=== PATIENT | male | born 1935 | race African-American/Black ===

== ENCOUNTER 2017-06-02 16:13 | Inpatient (IN) | payer MEDICARE, BC ==
[2017-05-31] MEDS: DOCUSATE SODIUM 50 MG/SENNA 8.6 MG TAB PO SCH (20:55)
[~2017-06-02 16:13] MED LIST: CARD2TAB PO; LORA1TAB12 PO; LOVA20TA PO; OMEP20TA93 PO; VERA1TAB17 PO
[2017-06-02 16:20] VITALS: BP 217/115; PULSE 102; RESP 20; TEMP 98.1; O2SAT 99
[2017-06-02] MEDS ORDERED: HYDR12.57 PO (16:40)
[2017-06-02] MEDS ORDERED: KLOR10TA PO (16:40)
[2017-06-02] MEDS ORDERED: cloNIDine HCL 0.1 MG TAB PO ONE ×2 (17:00→21:30)
--- NOTE | 2017-06-02 17:07 | RADRPT ---
EXAM DATE/TIME: 06/02/2017 16:57 [facility] COMPARISON: No previous studies available for comparison. INDICATIONS : Palpitations. MEDICAL HISTORY : Unobtainable. SURGICAL HISTORY : Unobtainable. ENCOUNTER: Initial ACUITY: 1 day PAIN SCORE: Non-responsive. LOCATION: Bilateral chest FINDINGS: A single view of the chest demonstrates the lungs to be symmetrically aerated without evidence of mas s, infiltrate or effusion. The cardiomediastinal contours are unremarkable. Osseous structures are intact. CONCLUSION: No acute disease. Jonathan Rosas MD on June 02, 2017 at 17:05 Board Certified Radiologist. This report was verified electronically.
[2017-06-02 17:08] VITALS: PULSE 100; RESP 18; O2SAT 98
[2017-06-02 17:20] LABS: AUTOMATED NEUTROPHIL # 4.7 TH/MM3 (1.8-7.7); BASOPHIL % 0.5 % (0.0-2.0); EOSINOPHIL % 0.6 % (0.0-4.0); HEMATOCRIT 40.8 % (39.0-51.0); HEMOGLOBIN 13.3 GM/DL (13.0-17.0); LYMPH % 20.7 % (9.0-44.0); LYMPHOCYTE # 1.4 TH/MM3 (1.0-4.8); MEAN CELL VOLUME 82.8 FL (80.0-100.0); MEAN CORPUSCULAR HGB CONC 32.6 % (32.0-36.0); MEAN PLATELET VOLUME 7.8 FL (7.0-11.0); MONO % 9.9 % (0.0-8.0); MONOCYTE # 0.7 TH/MM3 (0-0.9); NEUT % 68.3 % (16.0-70.0); PLATELET COUNT 229 TH/MM3 (150-450); RED BLOOD COUNT 4.93 MIL/MM3 (4.50-5.90); RED CELL DISTRIBUTION WIDTH 14.8 % (11.6-17.2); WHITE BLOOD COUNT 6.9 TH/MM3 (4.0-11.0)
[2017-06-02 17:50] LABS: INTERNATIONAL NORMALIZED RATIO 1.1 RATIO; PROTHROMBIN TIME - PATIENT 10.8 SEC (9.8-11.6)
--- NOTE | 2017-06-02 17:52 | PD ---
HPI Chief Complaint: Altered Mental Status Time Seen by Provider: 16:26 Travel History International Travel<30 days: No Contact w/Intl Traveler<30days: No Traveled to known affect area: No History of Present Illness HPI 81-year-old male that presents to the ED for evaluation of altered mental status. Per report I was given by the son and the daughter were present in the bedside patient has been having episodes of confusion as well as possibly delirium per her son for the past 2 weeks. Apparently the symptoms started on . Before Sunday son got in contact with the father about a month ago and patient was normal. Per son since symptoms of confusion started. Per Sunday appear to be very subtle and most of the time the end of being him repeating himself multiple times. Patient himself is completely oblivious to the symptoms and appears to be upset that he was brought here for evaluation by his kids. Per patient he is for the most part independent and lives with his . Per patient his is having issues. Per patient he has a history of high blood pressure and no history of CVA or mental illness. He does take lorazepam for anxiety chronically and son was concerned that maybe this was with causing some of this confusion. Per son he actually brought his father to his PCP for many years and fortunately patient had good day during the evaluation by the doctor and the doctor did not find anything of concern. Son brings the patient back here because for the past 48 hours patient has continued to be more confused and appears to be also getting upset that his kids are getting concerned about him. Patient himself denies any medical issues or any problems. He has no allergies to medication. No other medical issues. Per daughter patient was also diagnosed with prostate cancer and follows up with a doctor for this but she is unsure as to whether or doing for it. PFSH Past Medical History Cancer: No Cardiovascular Problems: No High Cholesterol: Yes Diabetes: No Endocrine: No Gastrointestinal Disorders: Yes (GERD) Genitourinary: No Hepatitis: No Hiatal Hernia: No Hypertension: Yes Immune Disorder: No Musculoskeletal: Yes (ARTHRITIS) Neurologic: No Psychiatric: Yes (ANXIETY) Reproductive: No Respiratory: No Thyroid Disease: No Past Surgical History AICD: No Joint Replacement: No Pacemaker: No Other Surgery: Yes Social History Alcohol Use: Yes (occ) Tobacco Use: No Substance Use: No Allergies-Medications (Allergen,Severity, Reaction): Coded Allergies: No Known Allergies (Unverified Allergy, Unknown, 06/02/17) Reported Meds & Prescriptions Reported Meds & Active Scripts Active Reported Klor-Con 10 (Potassium Chloride) 10 Meq Tab 10 Meq PO DAILY Hydrochlorothiazide 12.5 Mg Cap 5 Mg PO DAILY Omeprazole 20 Mg Tab 20 Mg PO DAILY Lovastatin 20 Mg Tab 20 Mg PO DAILY Lorazepam 1 Mg Tab 1 Mg PO DAILY PRN Review of Systems Except as stated in HPI: all other systems reviewed are Neg Physical Exam Narrative GENERAL: SKIN: Warm and dry. HEAD: Atraumatic. Normocephalic. EYES: Pupils equal and round. No scleral icterus. No injection or drainage. ENT: No nasal bleeding or discharge. Mucous membranes pink and moist. Tongue is midline. no uvula deviation. NECK: Trachea midline. No JVD. CARDIOVASCULAR: Regular rate and rhythm. No murmurs, S3, S4. RESPIRATORY: No accessory muscle use. Clear to auscultation. Breath sounds equal bilaterally. GASTROINTESTINAL: Abdomen soft, non-tender, nondistended. Hepatic and splenic margins not palpable. MUSCULOSKELETAL: Extremities without clubbing, cyanosis, or edema. No obvious deformities. Full range of motion of the upper and lower extremities bilaterally. 2+ pulses bilaterally. NEUROLOGICAL: Awake and alert. No obvious cranial nerve deficits. Motor grossly within normal limits. Five out of 5 muscle strength in the arms and legs. Normal speech. PSYCHIATRIC: Appropriate mood and affect; insight and judgment minimal but present Data Data Last Documented VS Vital Signs Date Time Temp Pulse Resp B/P (MAP) Pulse Ox O2 Delivery O2 Flow Rate FiO2 06/02/17 18:44 87 18 210/106 (140) 100 Room Air 06/02/17 16:20 98.1 Orders Orders Electrocardiogram (06/02/17 16:46) Complete Blood Count With Diff (06/02/17 16:46) Comprehensive Metabolic Panel (06/02/17 16:46) Ckmb (Isoenzyme) Profile (06/02/17 16:46) Troponin I (06/02/17 16:46) Prothrombin Time / Inr (Pt) (06/02/17 16:46) Act Partial Throm Time (Ptt) (06/02/17 16:46) Urinalysis - C+S If Indicated (06/02/17 16:46) Magnesium (Mg) (06/02/17 16:46) Thyroid Stimulating Hormone (06/02/17 16:46) Chest, Single Ap (06/02/17 16:46) Ct Brain W/O Iv Contrast(Rout) (06/02/17 16:46) Iv Access Insert/Monitor (06/02/17 16:46) Ecg Monitoring (06/02/17 16:46) Oximetry (06/02/17 16:46) Clonidine (Catapres) (06/02/17 17:00) CKMB (06/02/17 17:06) CKMB% (06/02/17 17:06) Lorazepam (Ativan) (06/02/17 18:30) Hydralazine Inj (Apresoline Inj) (06/02/17 18:30) Lorazepam Inj (Ativan Inj) (06/02/17 19:15) Place In Observation (06/02/17 ) Vital Signs (Adult) Q4H (06/02/17 19:10) Neuro Checks Q4H (06/02/17 19:10) Activity Oob With Assistance (06/02/17 19:10) Intake + Output STEFANIE.QSHIFT (06/02/17 19:10) Diet Regular Basic (06/03/17 Breakfast) Sodium Chlor 0.9% 1000 Ml Inj (Ns 1000 M (06/02/17 19:10) Sodium Chloride 0.9% Flush (Ns Flush) (06/02/17 19:15) Sodium Chloride 0.9% Flush (Ns Flush) (06/02/17 21:00) Ondansetron Inj (Zofran Inj) (06/02/17 19:15) Comprehensive Metabolic Panel (06/03/17 06:00) Complete Blood Count With Diff (06/03/17 06:00) Troponin I (06/03/17 00:00) Troponin I (06/03/17 06:00) Case Management Consult (06/02/17 19:10) Scd Bilateral/Knee High STEFANIE.BID (06/02/17 19:10) Sudhir Bilateral/Knee High STEFANIE.QSHIFT (06/02/17 19:12) Acetaminophen (Tylenol) (06/02/17 19:15) Acetamin-Hydrocod 325-5 Mg (Riley 5-325 (06/02/17 19:15) Acetamin-Hydrocod 325-10 Mg (Riley 10-32 (06/02/17 19:15) Docusate Sodium-Senna (Indu-Colace) (06/02/17 21:00) Magnesium Hydroxide Liq (Milk Of Magnesi (06/02/17 19:15) Sennosides (Senokot) (06/02/17 19:15) Bisacodyl Supp (Dulcolax Supp) (06/02/17 19:15) Lactulose Liq (Lactulose Liq) (06/02/17 19:15) Nifedipine Sr (Procardia Xl) (06/02/17 19:15) Nifedipine Sr (Procardia Xl) (06/03/17 09:00) Metoprolol Tartrate (Lopressor) (06/02/17 21:00) Pravastatin (Pravachol) (06/03/17 09:00) Admit Order (Ed Use Only) (06/02/17 19:31) Labs Laboratory Tests Test 06/02/17 17:06 06/02/17 17:17 White Blood Count 6.9 TH/MM3 Red Blood Count 4.93 MIL/MM3 Hemoglobin 13.3 GM/DL Hematocrit 40.8 % Mean Corpuscular Volume 82.8 FL Mean Corpuscular Hemoglobin 27.0 PG Mean Corpuscular Hemoglobin Concent 32.6 % Red Cell Distribution Width 14.8 % Platelet Count 229 TH/MM3 Mean Platelet Volume 7.8 FL Neutrophils (%) (Auto) 68.3 % Lymphocytes (%) (Auto) 20.7 % Monocytes (%) (Auto) 9.9 % Eosinophils (%) (Auto) 0.6 % Basophils (%) (Auto) 0.5 % Neutrophils # (Auto) 4.7 TH/MM3 Lymphocytes # (Auto) 1.4 TH/MM3 Monocytes # (Auto) 0.7 TH/MM3 Eosinophils # (Auto) 0.0 TH/MM3 Basophils # (Auto) 0.0 TH/MM3 CBC Comment DIFF FINAL Differential Comment Prothrombin Time 10.8 SEC Prothromb Time International Ratio 1.1 RATIO Activated Partial Thromboplast Time 28.5 SEC Blood Urea Nitrogen 9 MG/DL Creatinine 1.46 MG/DL Random Glucose 109 MG/DL Total Protein 8.4 GM/DL Albumin 3.5 GM/DL Calcium Level 9.8 MG/DL Magnesium Level 1.6 MG/DL Alkaline Phosphatase 85 U/L Aspartate Amino Transf (AST/SGOT) 24 U/L Alanine Aminotransferase (ALT/SGPT) 20 U/L Total Bilirubin 0.5 MG/DL Sodium Level 136 MEQ/L Potassium Level 3.3 MEQ/L Chloride Level 103 MEQ/L Carbon Dioxide Level 24.8 MEQ/L Anion Gap 8 MEQ/L Estimat Glomerular Filtration Rate 56 ML/MIN Total Creatine Kinase 172 U/L Creatine Kinase MB 2.6 NG/ML Troponin I 0.02 NG/ML Thyroid Stimulating Hormone 3rd Gen 0.557 uIU/ML Urine Color LIGHT-YELLOW Urine Turbidity CLEAR Urine pH 6.0 Urine Specific [place] 1.004 Urine Protein NEG mg/dL Urine Glucose (UA) NEG mg/dL Urine Ketones NEG mg/dL Urine Occult Blood NEG Urine Nitrite NEG Urine Bilirubin NEG Urine Urobilinogen LESS THAN 2.0 MG/DL Urine Leukocyte Esterase NEG Urine RBC LESS THAN 1 /hpf Urine WBC 3 /hpf Urine Squamous Epithelial Cells <1 /hpf Microscopic Urinalysis Comment CULT NOT INDICATED MDM Medical Decision Making Medical Screen Exam Complete: Yes Emergency Medical Condition: Yes Medical Record Reviewed: Yes Interpretation(s) CBC & BMP Diagram 06/02/17 17:06 Total Protein 8.4 H, Albumin 3.5, Calcium Level 9.8, Magnesium Level 1.6, Alkaline Phosphatase 85, Aspartate Amino Transf (AST/SGOT) 24, Alanine Aminotransferase (ALT/SGPT) 20, Total Bilirubin 0.[address] 06/02/17 1646 Signed Impressions: Service Date/Time: Friday, June 02, 2017 17:54 - CONCLUSION: 1. No acute intracranial abnormality. 2. Chronic white matter changes. 3. Right sphenoid sinusitis. Jonathan De La Fuente MD Chest X-Ray 06/02/17 1646 Signed Impressions: Service Date/Time: Friday, June 02, 2017 16:57 - CONCLUSION: No acute disease. Jonathan Rosas MD UA negative EKG shows sinus rhythm with no sign of acute ischemia or arrythmia read by me and attending. troponin and CKMB negative Differential Diagnosis Altered mental status versus dementia versus delirium versus infection versus CVA versus metastasis of the cancer Narrative Course 81-year-old male presents to the ED for evaluation of altered mental status. Patient was properly examined and was found to have signs and symptoms of altered mental status at this time. Labs and imaging order at this time. Patient does appear to be very hypertensive on exam. Patient was given clonidine here. Labs and imaging showed no sign of acute disease other than hypertension. Patient was given lorazepam as this could be a reaction to patient not taking any lorazepam today. His blood pressure still high. He was given hydralazine which did bring down his blood pressure below the 200s. Patient still somewhat altered. I discussed the recommendation for observation for further eval and the family of the patient wanted him to be admitted. Patient himself was not excited but was agreeable. Patient was admitted to Dr. Eduardo who agrees to admission. Diagnosis Primary Impression: Altered mental status Qualified Codes: R41.82 - Altered mental status, unspecified Additional Impression: Hypertension Qualified Codes: I10 - Essential (primary) hypertension Admitting Information Admitting Physician Requests: Observation Geronimo Temple Jun 02, 2017 17:52
[2017-06-02 18:02] LABS: ALBUMIN 3.5 GM/DL (3.4-5.0); AST (GOT) 24 U/L (15-37); BICARBONATE 24.8 MEQ/L (21.0-32.0); BLOOD UREA NITROGEN 9 MG/DL (7-18); CALCIUM 9.8 MG/DL (8.5-10.1); CHLORIDE 103 MEQ/L (98-107); CREATININE 1.46 MG/DL (0.60-1.30); GLOMERULAR FILTRATION RATE 56 ML/MIN (>89); GLUCOSE,RANDOM 109 MG/DL (74-106); MAGNESIUM 1.6 MG/DL (1.5-2.5); SODIUM (NA) 136 MEQ/L (136-145)
[2017-06-02 18:03] LABS: ALT (GPT) 20 U/L (12-78)
[2017-06-02 18:06] LABS: BILIRUBIN, URINE NEG (NEG); BLOOD, URINE NEG (NEG); GLUCOSE,URINE NEG (NEG); KETONE, URINE NEG (NEG); NITRITE,URINE NEG (NEG); SQUAMOUS EPITHELIAL CELL URINE <1 /hpf (0-5); URINE COLOR LIGHT-YELLOW (YELLW/STRAW); URINE LEUKOCYTE ESTERASE NEG (NEG)
--- NOTE | 2017-06-02 18:08 | RADRPT ---
EXAM DATE/TIME: 06/02/2017 17:54 [facility] COMPARISON: No previous studies available for comparison. INDICATIONS : Altered mental status. RADIATION DOSE: 56.35 CTDIvol (mGy) MEDICAL HISTORY : Hypertension. Gastroesophageal reflux disease. Renal calculi.Diabetes SURGICAL HISTORY : None. ENCOUNTER: Initial ACUITY: 1 day PAIN SCALE: Non-responsive LOCATION: cranial TECHNIQUE: Multiple contiguous axial images were obtained of the head. Using automated exposure control and adj ustment of the mA and/or kV according to patient size, radiation dose was kept as low as reasonably a chievable to obtain optimal diagnostic quality images. DICOM format image data is available electro nically for review and comparison. FINDINGS: CEREBRUM: The ventricles are normal for age. No evidence of midline shift, mass lesion, hemorrhage or acute in farction. No extra-axial fluid collections are seen. There is chronic-appearing low attenuation in t he periventricular white matter. POSTERIOR FOSSA: The cerebellum and brainstem are intact. The 4th ventricle is midline. The cerebellopontine angle i s unremarkable. EXTRACRANIAL: There is mucoperiosteal thickening and a mucous retention cyst in the right sphenoid air cell. SKULL: The calvaria is intact. No evidence of skull fracture. CONCLUSION: 1. No acute intracranial abnormality. 2. Chronic white matter changes. 3. Right sphenoid sinusitis. Jonathan De La Fuente MD on June 02, 2017 at 18:05 Board Certified Radiologist. This report was verified electronically.
[2017-06-02 18:13] LABS: ALKALINE PHOSPHATASE 85 U/L (45-117); TOTAL BILIRUBIN ADULT 0.5 MG/DL (0.2-1.0); TOTAL PROTEIN 8.4 GM/DL (6.4-8.2); TROPONIN I 0.02 NG/ML (0.02-0.05)
[2017-06-02] MEDS ORDERED: LORazepam 1 MG TAB PO ONE (18:30)
[2017-06-02] MEDS ORDERED: hydrALAZINE HCL 20 MG/ML VIAL IV PUSH ONE (18:30)
[2017-06-02 18:44] VITALS: BP 210/106; PULSE 87; RESP 18; O2SAT 100
[2017-06-02] MEDS ORDERED: SODIUM CHLOR 0.9% 1000 ML INJ 1,000 ML IV SCH (19:10)
--- NOTE | 2017-06-02 19:13 | HHI.HP ---
[facility] Carter Fountain DO Admission Diagnosis Diagnoses: (1) Encephalopathy Diagnosis: Principal (2) HTN (hypertension) Diagnosis: Principal (3) Renal insufficiency Diagnosis: Principal (4) Urinary retention Diagnosis: Principal Travel History International Travel<30 Days: No Contact w/Intl Traveler <30 Da: No Traveled to Known Affected Are: No History of Present Illness This is an 81-year-old male with a PMH of HTN, Hyperlipidemia, Anxiety and Prostate CA who was brought to the ER by family secondary to altered mental status. Per son, patient has been having worsening agitation, anxiety and confusion for the last 2 weeks. Son states pt is chronically on Lorazepam, however he believes his medication might be contributing to these symptoms. No reported h/o similar symptoms prior to 2wks ago. On arrival, BP 217/115, HR 102 , O2 sat 99% on RA, Afebrile. CBC unremarkable. Creatinine 1.46, previously 1.43 on 12/30/2013. Troponin negative. INR 1.1. UA negative for CXR with no acute findings. CT Head with no acute intracranial abnormality. On exam, pt highly anxious, moving around, c/o suprapubic pain. Bladder scan w/ >400ml urine. Review of Systems Except as stated in HPI: all other systems reviewed are Neg ROS: 14 point review of systems otherwise negative. Past Family Social History Past Medical History PMH: HTN, Hyperlipidemia, Anxiety and Prostate CA Past Surgical History PAST SURGICAL HISTORY: None Allergies: Coded Allergies: No Known Allergies (Unverified Allergy, Unknown, 06/02/17) Family History PAST FAMILY HISTORY: Reviewed. No h/o DM or CAD Social History PAST SOCIAL HISTORY: Occasional alcohol. Negative for tobacco or drugs. Physical Exam Vital Signs Vital Signs Date Time Temp Pulse Resp B/P (MAP) Pulse Ox O2 Delivery O2 Flow Rate FiO2 06/02/17 18:44 87 18 210/106 (140) 100 Room Air 06/02/17 17:08 100 18 98 Room Air 06/02/17 16:34 104 18 99 Room Air 06/02/17 16:20 98.1 102 20 217/115 (282) 99 Physical Exam PE: GENERAL: Pleasant elderly black male in no acute distress, but anxious, tangential speech. HEENT: PERRLA, EOMI. No scleral icterus or conjunctival pallor. No lid lag or facial droop. CARDIOVASCULAR: Regular rate and rhythm. No obvious murmurs to auscultation. No chest tenderness to palpation. RESPIRATORY: No obvious rhonchi or wheezing. Clear to auscultation. Breath sounds equal bilaterally. GASTROINTESTINAL: Abdomen soft, suprapubic tenderness to palpation, nondistended. BS normal. MUSCULOSKELETAL: Extremities without clubbing, cyanosis, or edema. No obvious deformities. NEUROLOGICAL: Awake, alert and oriented to person, place, +confused at times. No focal neurologic deficits. Moving both upper and lower extremities spontaneously. Laboratory Laboratory Tests Test 06/02/17 17:06 06/02/17 17:17 White Blood Count 6.9 Red Blood Count 4.93 Hemoglobin 13.3 Hematocrit 40.8 Mean Corpuscular Volume 82.8 Mean Corpuscular Hemoglobin 27.0 Mean Corpuscular Hemoglobin Concent 32.6 Red Cell Distribution Width 14.8 Platelet Count 229 Mean Platelet Volume 7.8 Neutrophils (%) (Auto) 68.3 Lymphocytes (%) (Auto) 20.7 Monocytes (%) (Auto) 9.9 Eosinophils (%) (Auto) 0.6 Basophils (%) (Auto) 0.5 Neutrophils # (Auto) 4.7 Lymphocytes # (Auto) 1.4 Monocytes # (Auto) 0.7 Eosinophils # (Auto) 0.0 Basophils # (Auto) 0.0 CBC Comment DIFF FINAL Differential Comment Prothrombin Time 10.8 Prothromb Time International Ratio 1.1 Activated Partial Thromboplast Time 28.5 Blood Urea Nitrogen 9 Creatinine 1.46 Random Glucose 109 Total Protein 8.4 Albumin 3.5 Calcium Level 9.8 Magnesium Level 1.6 Alkaline Phosphatase 85 Aspartate Amino Transf (AST/SGOT) 24 Alanine Aminotransferase (ALT/SGPT) 20 Total Bilirubin 0.5 Sodium Level 136 Potassium Level 3.3 Chloride Level 103 Carbon Dioxide Level 24.8 Anion Gap 8 Estimat Glomerular Filtration Rate 56 Total Creatine Kinase 172 Creatine Kinase MB 2.6 Troponin I 0.02 Thyroid Stimulating Hormone 3rd Gen 0.557 Urine Color LIGHT-YELLOW Urine Turbidity CLEAR Urine pH 6.0 Urine Specific [place] 1.004 Urine Protein NEG Urine Glucose (UA) NEG Urine Ketones NEG Urine Occult Blood NEG Urine Nitrite NEG Urine Bilirubin NEG Urine Urobilinogen LESS THAN 2.0 Urine Leukocyte Esterase NEG Urine RBC LESS THAN 1 Urine WBC 3 Urine Squamous Epithelial Cells <1 Microscopic Urinalysis Comment CULT NOT INDICATED Result Diagram: 06/02/17170506/02/17 170 Caprini VTE Risk Assessment Caprini VTE Risk Assessment: No/Low Risk (score <= 1) Caprini Risk Assessment Model Point Value = 1 Point Value = 2 Point Value = 3 Point Value = 5 Age 41-60 Minor surgery BMI > 25 kg/m2 Swollen legs Varicose veins or History of unexplained or recurrent spontaneous Oral contraceptives or hormone replacement Sepsis (< 1 month) Serious lung disease, including pneumonia (< 1 month) Abnormal pulmonary function Acute myocardial infarction Congestive heart failure (< 1 month) History of inflammatory bowel disease Medical patient at bed rest Age 61-74 Arthroscopic surgery Major open surgery (> 45 min) Laparoscopic surgery (> 45 min) Malignancy Confined to bed (> 72 hours) Immobilizing plaster cast Central venous access Age >= 75 History of VTE Family history of VTE Factor V Leiden Prothrombin [id number] Lupus anticoagulant Anticardiolipin antibodies Elevated serum homocysteine Heparin-induced thrombocytopenia Other congenital or acquired thrombophilia Stroke (< 1 month) Elective arthroplasty Hip, pelvis, or leg fracture Acute spinal cord injury (< 1 month) Prophylaxis Regimen Total Risk Factor Score Risk Level Prophylaxis Regimen 0-1 Low Early ambulation 2 Moderate Order ONE of the following: *Sequential Compression Device (SCD) *Heparin 5000 units SQ BID 3-4 Higher Order ONE of the following medications: *Heparin 5000 units SQ TID *Enoxaparin/Lovenox 40 mg SQ daily (WT < 150 kg, CrCl > 30 mL/min) *Enoxaparin/Lovenox 30 mg SQ daily (WT < 150 kg, CrCl > 10-29 mL/min) *Enoxaparin/Lovenox 30 mg SQ BID (WT < 150 kg, CrCl > 30 mL/min) AND/OR *Sequential Compression Device (SCD) 5 or more Highest Order ONE of the following medications: *Heparin 5000 units SQ TID (Preferred with Epidurals) *Enoxaparin/Lovenox 40 mg SQ daily (WT < 150 kg, CrCl > 30 mL/min) *Enoxaparin/Lovenox 30 mg SQ daily (WT < 150 kg, CrCl > 10-29 mL/min) *Enoxaparin/Lovenox 30 mg SQ BID (WT < 150 kg, CrCl > 30 mL/min) AND *Sequential Compression Device (SCD) Assessment and Plan Problem List: (1) Encephalopathy ICD Code: G93.40 - Encephalopathy, unspecified (2) HTN (hypertension) ICD Code: I10 - Essential (primary) hypertension (3) Renal insufficiency ICD Code: N28.9 - Disorder of kidney and ureter, unspecified (4) Urinary retention ICD Code: R33.9 - Retention of urine Status: Acute Assessment and Plan A/P: 1. Encephalopathy: acute onset AMS/confusion 2wks ago w/ progression per family. Possibly hypertensive encephalopathy due to uncontrolled HTN, however CT Head w/ no acute findings, images reviewed by me. No headache, no nausea/ vomiting. No focal deficits. U/a negative for UTI. Possibly progressive Dementia, will consult Neurology for further evaluation/recommendations. Neuro checks. 2. HTN: Uncontrolled. BP 200's on arrival, s/p Hydralazine in ER w/ minimal improvement. Start Nifedipine/Metoprolol, monitor BP. 3. Urinary Retention: c/o suprapubic pain, bladder scan w/ >400ml, likely secondary to BPH/Prostate CA, will start Flomax, Straight Cath prn. 4. Renal Insufficiency: Creatinine 1.46, previously 1.43 on 12/30/13, U/a negative for UTI, monitor I/O, hold HCTZ, repeat labs in am. 5. DVT Prophylaxis: SCD/Teds 6. Social work for d/c planning as needed. 7. Case discussed w/ ER physician at length, labs/records/imaging reviewed by me Neris Eduardo MD Jun 02, 2017 19:13
[2017-06-02] MEDS ORDERED: SENNOSIDES 8.6 MG TAB PO PRN (19:15)
[2017-06-02] MEDS ORDERED: ONDANSETRON HCL 4 MG/2 ML VIAL IVP PRN (19:15)
[2017-06-02] MEDS ORDERED: NIFEdipine 30 MG SUSTAINED RELEASE TAB PO ONE (19:15)
[2017-06-02] MEDS ORDERED: LACTULOSE SYRUP 20 GM/30 ML CUP PO PRN (19:15)
[2017-06-02] MEDS ORDERED: MAGNESIUM HYDROXIDE SUSP 30 ML CUP PO PRN (19:15)
[2017-06-02] MEDS ORDERED: ACETAMINOPHEN 325 MG TAB PO PRN (19:15)
[2017-06-02] MEDS ORDERED: ACETAMINOPHEN/HYDROcodone 325 MG/5 MG TAB PO PRN (19:15)
[2017-06-02] MEDS ORDERED: BISACODYL 10 MG SUPP RECTAL PRN (19:15)
[2017-06-02] MEDS ORDERED: SODIUM CHLORIDE 0.9% FLUSH 10 ML FLUSH IV FLUSH PRN (19:15)
[2017-06-02 19:43] VITALS: BP 186/96; PULSE 90; RESP 14; O2SAT 100
[2017-06-02] MEDS: DOCUSATE SODIUM 50 MG/SENNA 8.6 MG TAB PO SCH (21:00)
[2017-06-02 21:02] VITALS: BP 208/98; PULSE 108; RESP 19; TEMP 98.3; O2SAT 98
[2017-06-02] MEDS: METOPROLOL TARTRATE 25 MG TAB PO SCH (21:02)
[2017-06-02] MEDS: SODIUM CHLORIDE 0.9% FLUSH 10 ML FLUSH IV FLUSH SCH (21:06)
[2017-06-02] MEDS: TEMAZEPAM 7.5 MG CAP PO PRN (22:23)
[2017-06-02] MEDS ORDERED: TAMSULOSIN HCL 0.4 MG CAP PO ONE (22:30)
[2017-06-02 23:08] VITALS: BP 129/64; PULSE 64
[2017-06-03 00:55] VITALS: BP 110/57
[2017-06-03] MEDS: ACETAMINOPHEN/HYDROcodone 325 MG/10 MG TAB PO PRN ×2 (02:23→21:09)
[2017-06-03 06:54] LABS: AUTOMATED NEUTROPHIL # 5.8 TH/MM3 (1.8-7.7); BASOPHIL % 0.5 % (0.0-2.0); EOSINOPHIL # 0.1 TH/MM3 (0-0.4); EOSINOPHIL % 1.1 % (0.0-4.0); HEMATOCRIT 37.9 % (39.0-51.0); HEMOGLOBIN 12.6 GM/DL (13.0-17.0); LYMPH % 15.1 % (9.0-44.0); LYMPHOCYTE # 1.2 TH/MM3 (1.0-4.8); MEAN CORPUSCULAR HEMOGLOBIN 27.5 PG (27.0-34.0); MEAN CORPUSCULAR HGB CONC 33.1 % (32.0-36.0); MEAN PLATELET VOLUME 8.3 FL (7.0-11.0); MONO % 10.2 % (0.0-8.0); MONOCYTE # 0.8 TH/MM3 (0-0.9); NEUT % 73.1 % (16.0-70.0); PLATELET COUNT 204 TH/MM3 (150-450); RED BLOOD COUNT 4.57 MIL/MM3 (4.50-5.90); RED CELL DISTRIBUTION WIDTH 14.2 % (11.6-17.2)
[2017-06-03 07:35] LABS: ALBUMIN 3.1 GM/DL (3.4-5.0); ALT (GPT) 19 U/L (12-78); AST (GOT) 20 U/L (15-37); BICARBONATE 24.1 MEQ/L (21.0-32.0); BLOOD UREA NITROGEN 12 MG/DL (7-18); CALCIUM 9.2 MG/DL (8.5-10.1); CHLORIDE 105 MEQ/L (98-107); CREATININE 1.44 MG/DL (0.60-1.30); GLOMERULAR FILTRATION RATE 57 ML/MIN (>89); GLUCOSE,RANDOM 100 MG/DL (74-106); SODIUM (NA) 139 MEQ/L (136-145)
[2017-06-03 07:39] LABS: ALKALINE PHOSPHATASE 79 U/L (45-117); TOTAL BILIRUBIN ADULT 0.5 MG/DL (0.2-1.0); TOTAL PROTEIN 7.4 GM/DL (6.4-8.2); TROPONIN I 0.04 NG/ML (0.02-0.05)
[2017-06-03] MEDS: PRAVASTATIN SOD 20 MG TAB PO SCH (08:34)
[2017-06-03] MEDS: NIFEdipine 30 MG SUSTAINED RELEASE TAB PO SCH (08:35)
[2017-06-03] MEDS: DOCUSATE SODIUM 50 MG/SENNA 8.6 MG TAB PO SCH ×2 (08:35→21:08)
[2017-06-03] MEDS: METOPROLOL TARTRATE 25 MG TAB PO SCH ×2 (08:35→21:08)
[2017-06-03] MEDS: TAMSULOSIN HCL 0.4 MG CAP PO SCH (08:35)
[2017-06-03] MEDS: SODIUM CHLORIDE 0.9% FLUSH 10 ML FLUSH IV FLUSH SCH ×2 (08:36→21:00)
[2017-06-03 08:40] VITALS: BP 138/76; PULSE 65; RESP 20; TEMP 97.8; O2SAT 100
--- NOTE | 2017-06-03 11:24 | PD.CONS ---
History of Present Illness Service Neurology Consult Requested By med Reason for Consult confusion Primary Care Physician Carter Fountain, DO History of Present Illness 81-year-old male with a PMH of HTN, Hyperlipidemia, Anxiety and Prostate CA who was brought to the ER by family secondary to altered mental status. Son at bedside and states his father has not been right since . episodes of confusion, not making sense. 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 lives with his who has mild dementia. he has not been dx'd with dementia. son feels he is better this am. pt denies any hopkins, cp, focal weakness. feels well. recollects bringing his to our office. On arrival, BP 217/115. CT Head with no acute intracranial abnormality. has been taking ativan 1mg 3-4x/day for anxiety. Review of Systems Except as stated in HPI: all other systems reviewed are Neg Past Family Social History Past Medical History PMH: HTN, Hyperlipidemia, Anxiety and Prostate CA Past Surgical History PAST SURGICAL HISTORY: None Allergies: Coded Allergies: No Known Allergies (Unverified Allergy, Unknown, 06/02/17) Family History No h/o DM or CAD Social History ; with mild dementia. Occasional alcohol. Negative for tobacco or drugs. Review of Systems All other ROS: ROS reviewed as documented in chart Past Family Social History Allergies: Coded Allergies: No Known Allergies (Unverified Allergy, Unknown, 06/02/17) Active Ordered Medications Current Medications Medications (Trade) Dose Ordered Sig/Frederic Route Start Time Stop Time Status Last Admin (Ativan Inj) 0.5 mg Q3H PRN IV PUSH 06/02/17 19:15 Sodium Chloride 1,000 ml @ 100 mls/hr Q10H IV 06/02/17 19:10 06/02/17 19:41 (NS Flush) 2 ml UNSCH PRN IV FLUSH 06/02/17 19:15 (NS Flush) 2 ml BID IV FLUSH 06/02/17 21:00 06/02/17 21:06 (Zofran Inj) 4 mg Q6H PRN IVP 06/02/17 19:15 (Tylenol) 650 mg Q6H PRN PO 06/02/17 19:15 ([place] 5-325 Mg) 1 tab Q4H PRN PO 06/02/17 19:15 ([place] 10-325 Mg) 1 tab Q4H PRN PO 06/02/17 19:15 06/03/17 02:23 (Indu-Colace) 1 tab BID PO 06/02/17 21:00 06/03/17 08:35 (Milk Of Magnesia Liq) 30 ml Q12H PRN PO 06/02/17 19:15 (Senokot) 17.2 mg Q12H PRN PO 06/02/17 19:15 (Dulcolax Supp) 10 mg DAILY PRN RECTAL 06/02/17 19:15 (Lactulose Liq) 30 ml DAILY PRN PO 06/02/17 19:15 (Procardia Xl) 30 mg DAILY PO 06/03/17 09:00 06/03/17 08:35 (Lopressor) 25 mg Q12HR PO 06/02/17 21:00 06/03/17 08:35 (Pravachol) 20 mg DAILY PO 06/03/17 09:00 06/03/17 08:34 (Restoril) 7.5 mg HS PRN PO 06/02/17 22:15 06/02/17 22:23 (Flomax) 0.4 mg DAILY PO 06/03/17 09:00 06/03/17 08:35 Exam I&O / VS Vital Signs Date Time Temp Pulse Resp B/P (MAP) Pulse Ox O2 Delivery O2 Flow Rate FiO2 06/03/17 08:40 97.8 65 20 138/76 (96) 100 06/03/17 00:55 110/57 (74) 06/02/17 23:08 64 129/64 (85) 06/02/17 21:02 98.3 108 19 208/98 (134) 98 06/02/17 20:29 06/02/17 19:43 90 14 186/96 (126) 100 Room Air 06/02/17 19:34 16 06/02/17 18:44 87 18 210/106 (140) 100 Room Air 06/02/17 17:08 100 18 98 Room Air 06/02/17 16:34 104 18 99 Room Air 06/02/17 16:20 98.1 102 20 217/115 (149) 99 General: Alert and Oriented, No acute distress Eye: EOMI Respiratory: Non-labored respirations Cardiology: Normal rate Neurologic: Alert, Oriented, Normal sensory, Normal motor, No focal defects, CN II-XII intact, Normal DTR's Psychiatric: Cooperative, Appropriate mood & affect Exam Comments ox 2, not to exact date, follows, pres Trump, recognizes son, pleasant, calm, eomi, ou 3-2mm, face sym, neck supple, conte to gravity Review/Management Diagnosis/Plan: (1) Encephalopathy ICD Codes: G93.40 - Encephalopathy, unspecified Status: Acute Plan: likely 2/2 severe HTN with probable underlying development of MCI/early dementia benzo's may be playing a role no fever, wbc in range recs bp control eeg check b12 mri brain limit benzo use d/c planning later today/am home health care checks for medication compliance d/w pt/son no driving will f/u in our office for further cognitive evaluation (2) Cognitive impairment ICD Codes: R41.89 - Other symptoms and signs involving cognitive functions and awareness Status: Chronic Plan: suspect developing MCI/early alz no driving (3) Anxiety ICD Codes: F41.9 - Anxiety disorder, unspecified Status: Chronic (4) HTN (hypertension) ICD Codes: I10 - Essential (primary) hypertension Status: Chronic Problem Qualifiers (1) HTN (hypertension): Qualified Codes: I10 - Essential (primary) hypertension Luiz Marquez MD Jun 03, 2017 11:24
--- NOTE | 2017-06-03 11:24 | HHI.PR ---
Subjective Remarks in no acute distress. denies pain. awake, alert and oriented. daughter at the bedside. Objective Vitals Vital Signs Date Time Temp Pulse Resp B/P (MAP) Pulse Ox O2 Delivery O2 Flow Rate FiO2 06/03/17 08:40 97.8 65 20 138/76 (96) 100 06/03/17 00:55 110/57 (74) 06/02/17 23:08 64 129/64 (85) 06/02/17 21:02 98.3 108 19 208/98 (134) 98 06/02/17 20:29 06/02/17 19:43 90 14 186/96 (126) 100 Room Air 06/02/17 19:34 16 06/02/17 18:44 87 18 210/106 (140) 100 Room Air 06/02/17 17:08 100 18 98 Room Air 06/02/17 16:34 104 18 99 Room Air 06/02/17 16:20 98.1 102 20 217/115 (149) 99 I/O 06/02/17 06/02/17 06/02/17 06/03/17 06/03/17 06/03/17 07:00 15:00 23:00 07:00 15:00 23:00 Output Total 550 ml Balance -550 ml Output Urine Total 550 ml Bladder Scan Volume Amount 443 ml Result Diagram: 06/03/17 0607 06/03/17 0607 Imaging Last Impressions Head CT [id number]/02/171645 Signed Impressions: Service Date/Time: Friday, June 02, 2017 17:54 - CONCLUSION: 1. No acute intracranial abnormality. 2. Chronic white matter changes. 3. Right sphenoid sinusitis. Jonathan De La Fuente MD Chest X-Ray 06/02/171645 Signed Impressions: Service Date/Time: Friday, June 02, 2017 16:57 - CONCLUSION: No acute disease. Jonathan Rosas MD Objective Remarks GENERAL: This is a well-nourished, well-developed patient, in no apparent distress. CARDIOVASCULAR: Regular rate and regular rhythm without murmurs, gallops, or rubs. RESPIRATORY: Clear to auscultation. Breath sounds equal bilaterally. No wheezes , rales, or rhonchi. GASTROINTESTINAL: Abdomen soft, non-tender, nondistended. Normal, active bowel sounds MUSCULOSKELETAL: Extremities without clubbing, cyanosis, or edema. NEURO: Alert & Oriented x4 to person, place, time, situation. Moves all ext x4 Medications and IVs Inpatient Medications Acetaminophen (Tylenol) 650 mg Q6H PRN PO FEVER/PAIN SCALE 1 TO 2; Start at 19:15 Acetaminophen/ Hydrocodone Bitart ([place] 5-325 Mg) 1 tab Q4H PRN PO PAIN SCALE 3 TO 5; Start 06/02/17 at 19:15 Acetaminophen/ Hydrocodone Bitart ([place] 10-325 Mg) 1 tab Q4H PRN PO PAIN SCALE 6 TO 10 Last administered on 06/03/17at 02:23; Start 06/02/17 at 19:15 Bisacodyl (Dulcolax Supp) 10 mg DAILY PRN RECTAL SEVERE CONSITIPATION; Start at 19:15 Clonidine (Catapres) 0.1 mg ONCE ONCE PO Last administered on 06/02/17at 21:39 ; Start 06/02/17 at 21:30; Stop 06/02/17 at 21:33; Status DC Hydralazine HCl (Apresoline Inj) 10 mg ONCE ONCE IV PUSH Last administered on 06/02/17at 18:41; Start 06/02/17 at 18:30; Stop 06/02/17 at 18:31; Status DC Lactulose (Lactulose Liq) 30 ml DAILY PRN PO SEVERE CONSITIPATION; Start at 19:15 Lorazepam (Ativan Inj) 0.5 mg Q3H PRN IV PUSH AGITATION/ANXIETY; Start at 19:15 Lorazepam (Ativan) 1 mg ONCE ONCE PO Last administered on 06/02/17at 18:40; Start 06/02/17 at 18:30; Stop 06/02/17 at 18:31; Status DC Magnesium Hydroxide (Milk Of Magnesia Liq) 30 ml Q12H PRN PO Mild constipation ; Start 06/02/17 at 19:15 Metoprolol Tartrate (Lopressor) 25 mg Q12HR PO Last administered on 06/03/17at 08:35; Start 06/02/17 at 21:00 Nifedipine (Procardia Xl) 30 mg DAILY PO Last administered on 06/03/17at 08:35; Start 06/03/17 at 09:00 Ondansetron HCl (Zofran Inj) 4 mg Q6H PRN IVP NAUSEA OR VOMITING; Start at 19:15 Pravastatin Sodium (Pravachol) 20 mg DAILY PO Last administered on 06/03/17at 08 :34; Start 06/03/17 at 09:00 Senna/Docusate Sodium (Indu-Colace) 1 tab BID PO Last administered on at 08:35; Start 06/02/17 at 21:00 Sennosides (Senokot) 17.2 mg Q12H PRN PO Moderate constipation; Start 06/02/17 at 19:15 Sodium Chloride (NS Flush) 2 ml BID IV FLUSH Last administered on 06/02/17at 21: 06; Start 06/02/17 at 21:00 Tamsulosin HCl (Flomax) 0.4 mg DAILY PO Last administered on 06/03/17at 08:35; Start 06/03/17 at 09:00 Temazepam (Restoril) 7.5 mg HS PRN PO SLEEP Last administered on 06/02/17at 22: 23; Start 06/02/17 at 22:15 A/P Problem List: (1) Encephalopathy ICD Code: G93.40 - Encephalopathy, unspecified Status: Acute (2) HTN (hypertension) ICD Code: I10 - Essential (primary) hypertension Status: Chronic (3) Renal insufficiency ICD Code: N28.9 - Disorder of kidney and ureter, unspecified (4) Urinary retention ICD Code: R33.9 - Retention of urine Status: Acute Assessment and Plan 1. Encephalopathy: Possibly progressive Dementia.neurology consulted. Neuro checks. 2. HTN: overall better controlled. continue Nifedipine/Metoprolol, monitor BP. 3. Urinary Retention: c/o suprapubic pain, bladder scan w/ >400ml, likely secondary to BPH/Prostate CA, will start Flomax, Straight Cath prn. 4. Renal Insufficiency: Creatinine 1.46, previously 1.43 on 12/30/13, U/a negative for UTI, monitor I/O, hold HCTZ, repeat labs in am. 5.hypokalemia; will replace. 6. DVT Prophylaxis: SCD/Teds Discharge Planning awaiting neurology evaluation. Problem Qualifiers (1) HTN (hypertension): Qualified Codes: I10 - Essential (primary) hypertension Tera Bruce MD Jun 03, 2017 11:24
[2017-06-03] MEDS ORDERED: POTASSIUM CHLORIDE 10 MEQ CONTROLLED RELEASE TAB PO ONE (11:30)
[2017-06-03 12:08] VITALS: BP 116/55; PULSE 70; RESP 20; TEMP 97.9; O2SAT 96
--- NOTE | 2017-06-03 14:24 | EKG ---
Date Performed: 06/02/2017 Time Performed: 17:21:07 PTAGE: 81 years EKG: Sinus rhythm MARKED LEFT AXIS DEVIATION VOLTAGE CRITERIA FOR LVH NONSPECIFIC T-WAVE ABNORMALITY ABNORMAL ECG Sinc e PREVIOUS TRACING , no significant change noted PREVIOUS TRACIN10/01/2015 10.14 DOCTOR: Sharda Lake Interpretating Date/Time 06/03/2017 14:22:40
[2017-06-03] MEDS: LORazepam 2 MG/ML VIAL IV PUSH PRN (15:45)
[2017-06-03 16:08] VITALS: BP 119/65; PULSE 62; RESP 18; TEMP 98.2; O2SAT 96
[2017-06-03] MEDS ORDERED: NIFE30TA8 PO (17:03)
[2017-06-03] MEDS ORDERED: METO25TA3 PO (17:03)
--- NOTE | 2017-06-03 19:14 | MG ---
cc: Luiz Marquez MD EEG RECORD NUMBER: [id number] A 6-8 Hz posterior rhythm, 20-50 microvolts. Anterior to posterior gradient. Attenuation background slowing with transition into drowsy state, followed by stage I sleep and vertex waves. Tiny sharp transients. Good EEG variability and reactivity. Reasonable driving with photic stimulation. EKG showing sinus rhythm. INTERPRETATION: Normal awake, sleep electroencephalogram. Clinical correlation. Luiz Marquez MD MG/SB , 07:00 PM , 07:12 PM MTDD
[2017-06-03 19:53] VITALS: BP 135/67; PULSE 58; RESP 16; TEMP 98.7; O2SAT 99
[2017-06-03] MEDS ORDERED: TAMS5CAP PO (20:33)
[2017-06-03] MEDS: TEMAZEPAM 7.5 MG CAP PO PRN (21:08)
[2017-06-03 23:49] VITALS: BP 127/57; PULSE 50; RESP 16; TEMP 98.2; O2SAT 98
[2017-06-04 03:51] VITALS: BP 126/58; PULSE 56; RESP 16; TEMP 98.3; O2SAT 99
[2017-06-04] MEDS: LORazepam 2 MG/ML VIAL IV PUSH PRN ×2 (06:36→15:41)
[2017-06-04 08:00] VITALS: BP 127/65; PULSE 60; RESP 16; TEMP 98.3; O2SAT 97
[2017-06-04] MEDS: DOCUSATE SODIUM 50 MG/SENNA 8.6 MG TAB PO SCH (08:15)
[2017-06-04] MEDS: TAMSULOSIN HCL 0.4 MG CAP PO SCH (08:15)
[2017-06-04] MEDS: NIFEdipine 30 MG SUSTAINED RELEASE TAB PO SCH (08:16)
[2017-06-04] MEDS: METOPROLOL TARTRATE 25 MG TAB PO SCH ×2 (08:16→20:55)
[2017-06-04] MEDS: PRAVASTATIN SOD 20 MG TAB PO SCH (08:16)
[2017-06-04] MEDS: SODIUM CHLORIDE 0.9% FLUSH 10 ML FLUSH IV FLUSH SCH ×2 (08:17→20:55)
--- NOTE | 2017-06-04 08:18 | HHI.PR ---
Review/Management Diagnosis/Plan: (1) Encephalopathy ICD Codes: G93.40 - Encephalopathy, unspecified Status: Acute Plan: likely 2/2 severe HTN with probable underlying development of MCI/early dementia benzo's may be playing a role no fever, wbc in range tsh/b12 nml rpr pending recs mental status improved eeg-nml mri brain-pending limit benzo use home health care checks for medication compliance d/w pt/son no driving d/c planning today from neuro if no acute lesion on mri brain will f/u in our office for further cognitive evaluation in 2 weeks (2) Cognitive impairment ICD Codes: R41.89 - Other symptoms and signs involving cognitive functions and awareness Status: Chronic Plan: suspect developing MCI/early alz no driving (3) Anxiety ICD Codes: F41.9 - Anxiety disorder, unspecified Status: Chronic (4) HTN (hypertension) ICD Codes: I10 - Essential (primary) hypertension Status: Chronic Subjective Subjective Comments No acute events reported No headache No chest pain No dyspnea Active Medications Current Medications Medications (Trade) Dose Ordered Sig/Frederic Route Start Time Stop Time Status Last Admin (Ativan Inj) 0.5 mg Q3H PRN IV PUSH 06/02/17 19:15 06/04/17 06:36 (NS Flush) 2 ml UNSCH PRN IV FLUSH 06/02/17 19:15 (NS Flush) 2 ml BID IV FLUSH 06/02/17 21:00 06/03/17 21:00 (Zofran Inj) 4 mg Q6H PRN IVP 06/02/17 19:15 (Tylenol) 650 mg Q6H PRN PO 06/02/17 19:15 ([place] 5-325 Mg) 1 tab Q4H PRN PO 06/02/17 19:15 ([place] 10-325 Mg) 1 tab Q4H PRN PO 06/02/17 19:15 06/03/17 21:09 (Indu-Colace) 1 tab BID PO 06/02/17 21:00 06/03/17 21:08 (Milk Of Magnesia Liq) 30 ml Q12H PRN PO 06/02/17 19:15 (Senokot) 17.2 mg Q12H PRN PO 06/02/17 19:15 (Dulcolax Supp) 10 mg DAILY PRN RECTAL 06/02/17 19:15 (Lactulose Liq) 30 ml DAILY PRN PO 06/02/17 19:15 (Procardia Xl) 30 mg DAILY PO 06/03/17 09:00 06/03/17 08:35 (Lopressor) 25 mg Q12HR PO 06/02/17 21:00 06/03/17 21:08 (Pravachol) 20 mg DAILY PO 06/03/17 09:00 06/03/17 08:34 (Restoril) 7.5 mg HS PRN PO 06/02/17 22:15 06/03/17 21:08 (Flomax) 0.4 mg DAILY PO 06/03/17 09:00 06/03/17 08:35 Allergies Allergies Coded Allergies No Known Allergies (Unverified Allergy, Unknown, 06/02/17) Review of Systems All other ROS: ROS reviewed as documented in chart Exam I&O / VS Vital Signs Date Time Temp Pulse Resp B/P (MAP) Pulse Ox O2 Delivery O2 Flow Rate FiO2 06/04/17 08:00 98.3 60 16 127/65 (85) 97 06/04/17 03:51 98.3 56 16 126/58 (80) 99 06/03/17 23:49 98.2 50 16 127/57 (80) 98 06/03/17 22:09 18 06/03/17 19:53 98.7 58 16 135/67 (89) 99 06/03/17 16:08 98.2 62 18 119/65 (83) 96 06/03/17 12:08 97.9 70 20 116/55 (75) 96 06/03/17 08:40 97.8 65 20 138/76 (96) 100 General: Alert and Oriented, No acute distress Eye: EOMI Respiratory: Non-labored respirations Cardiology: Normal rate Neurologic: Alert, Oriented, Normal sensory, Normal motor, No focal defects, CN II-XII intact, Normal DTR's Psychiatric: Cooperative, Appropriate mood & affect Exam Comments ox3, recognizes me, follows, pres Trump, recognizes son, pleasant, calm, eomi, ou 3-2mm, face sym, neck supple, conte to gravity Objective Micro and Labs Laboratory Tests Test 06/03/17 12:41 Vitamin B12 Level 395 Problem Qualifiers (1) HTN (hypertension): Qualified Codes: I10 - Essential (primary) hypertension Luiz Marquez MD Jun 04, 2017 08:18
[2017-06-04 09:08] LABS: BICARBONATE 25.2 MEQ/L (21.0-32.0); CALCIUM 9.5 MG/DL (8.5-10.1); CREATININE 1.71 MG/DL (0.60-1.30)
--- NOTE | 2017-06-04 10:24 | RADRPT ---
EXAM DATE/TIME: 06/04/2017 09:58 [facility] COMPARISON: No previous studies available for comparison. INDICATIONS : Altered mental status. Increasing confusion. MEDICAL HISTORY : Hypertension. Hypercholesterolemia. Carcinoma, prostate. SURGICAL HISTORY : None. ENCOUNTER: Subsequent ACUITY: 2 weeks PAIN SCORE: 0/10 LOCATION: cranial TECHNIQUE: Multiplanar, multisequence MRI of the brain was performed without contrast. FINDINGS: There is moderate central and cortical atrophy with extensive periventricular white matter changes ev ident. Subacute lacunar type infarct genu internal capsule right side without hemorrhage. There are no extra-axial fluid collections appreciated. There is no parenchymal hemorrhage. Midline structures are intact Atrophy and periventricular white matter changes extending to the posterior fossa. Orbits and nasal sinuses visualized are unremarkable. CONCLUSION: Subacute to chronic lacunar type infarction genu posterior limb internal capsule righ t side Extensive periventricular white matter changes and atrophy. Carter Sawyer MD FACR on June 04, 2017 at 10:20 Board Certified Radiologist. This report was verified electronically.
--- NOTE | 2017-06-04 10:45 | HHI.FF ---
Face to Face Verification Diagnosis: (1) Urinary retention (2) Microhematuria (3) Elevated PSA (4) BPH without obstruction/lower urinary tract symptoms (5) BPH with urinary obstruction (6) HTN (hypertension) Physical Therapy Order: Evaluate and Treat Occupational Therapy Order: Evaluate and Treat Home Health Nursing Order: Signs/symptoms of disease process Medication education-adverse effect Nursing assessment with vital signs I have seen patient Aj Brown on 06/04/17. My clinical findings support the need for the requested home health care services because: Ltd mobility - disease progression Deconditioned w/ increased weakness Limited ability to care for self Impaired cognition/judgement High risk of falls I certify that my clinical findings support that this patient is homebound because: Impaired cognitive ability/safety Unsteady gait/balance Anika Morrison Jun 04, 2017 10:45 am
[2017-06-04] MEDS ORDERED: WALKER WHEELS/F1 MIS (10:46)
[2017-06-04 10:47] VITALS: BP 124/60; PULSE 60; RESP 16; TEMP 98.1; O2SAT 99
--- NOTE | 2017-06-04 10:47 | HHI.DCPOC ---
Discharge Care Plan Diagnosis: (1) Urinary retention (2) Microhematuria (3) Elevated PSA (4) BPH without obstruction/lower urinary tract symptoms (5) BPH with urinary obstruction Your Health Problems Are: Urinary Difficulties Goals to Promote Your Health * To prevent worsening of your condition and complications * To maintain your health at the optimal level Directions to Meet Your Goals Take your medications as prescribed Follow your dietary instruction Follow activity as directed Keep your appointments as scheduled Take your immunizations and boosters as scheduled If your symptoms worsen call your PCP, if no PCP go to Urgent Care Center or Emergency Room Smoking is Dangerous to Your Health. Avoid second hand smoke Call the 24-hour hour crisis hotline for domestic abuse at Anika Morrison Jun 04, 2017 10:47 am
--- NOTE | 2017-06-04 12:01 | HHI.PR ---
Subjective Remarks in no acute distress. resting comfortably. is more alert. son at the bedside. Objective Vitals Vital Signs Date Time Temp Pulse Resp B/P (MAP) Pulse Ox O2 Delivery O2 Flow Rate FiO2 06/04/17 10:47 98.1 60 16 124/60 (81) 99 06/04/17 08:00 98.3 60 16 127/65 (85) 97 06/04/17 03:51 98.3 56 16 126/58 (80) 99 06/03/17 23:49 98.2 50 16 127/57 (80) 98 06/03/17 22:09 18 06/03/17 19:53 98.7 58 16 135/67 (89) 99 06/03/17 16:08 98.2 62 18 119/65 (83) 96 06/03/17 12:08 97.9 70 20 116/55 (75) 96 I/O 06/03/17 06/03/17 06/03/17 06/04/17 06/04/17 06/04/17 07:00 15:00 23:00 07:00 15:00 23:00 Intake Total 200 ml Output Total 550 ml 750 ml 225 ml Balance -550 ml -750 ml -25 ml Intake Oral 200 ml Output Urine Total 550 ml 750 ml 225 ml Result Diagram: 06/03/17 0607 06/04/17 0749 Imaging Last Impressions Brain MRI 06/04/17 0000 Signed Impressions: Service Date/Time: Sunday, June 04, 2017 09:58 - CONCLUSION: Subacute to chronic lacunar type infarction genu posterior limb internal capsule right side Extensive periventricular white matter changes and atrophy. Carter Sawyer MD FACR Head CT 06/02/171645 Signed Impressions: Service Date/Time: Friday, June 02, 2017 17:54 - CONCLUSION: 1. No acute intracranial abnormality. 2. Chronic white matter changes. 3. Right sphenoid sinusitis. Jonathan De La Fuente MD Chest X-Ray 06/02/171645 Signed Impressions: Service Date/Time: Friday, June 02, 2017 16:57 - CONCLUSION: No acute disease. Jonathan Rosas MD Objective Remarks GENERAL: This is a well-nourished, well-developed patient, in no apparent distress. CARDIOVASCULAR: Regular rate and regular rhythm without murmurs, gallops, or rubs. RESPIRATORY: Clear to auscultation. Breath sounds equal bilaterally. No wheezes , rales, or rhonchi. GASTROINTESTINAL: Abdomen soft, non-tender, nondistended. Normal, active bowel sounds MUSCULOSKELETAL: Extremities without clubbing, cyanosis, or edema. NEURO: Alert & Oriented x4 to person, place, time, situation. Moves all ext x4 Medications and IVs Inpatient Medications Acetaminophen (Tylenol) 650 mg Q6H PRN PO FEVER/PAIN SCALE 1 TO 2; Start at 19:15 Acetaminophen/ Hydrocodone Bitart ([place] 5-325 Mg) 1 tab Q4H PRN PO PAIN SCALE 3 TO 5; Start 06/02/17 at 19:15 Acetaminophen/ Hydrocodone Bitart ([place] 10-325 Mg) 1 tab Q4H PRN PO PAIN SCALE 6 TO 10 Last administered on 06/03/17at 21:09; Start 06/02/17 at 19:15 Bisacodyl (Dulcolax Supp) 10 mg DAILY PRN RECTAL SEVERE CONSITIPATION; Start at 19:15 Clonidine (Catapres) 0.1 mg ONCE ONCE PO Last administered on 06/02/17at 21:39 ; Start 06/02/17 at 21:30; Stop 06/02/17 at 21:33; Status DC Hydralazine HCl (Apresoline Inj) 10 mg ONCE ONCE IV PUSH Last administered on 06/02/17at 18:41; Start 06/02/17 at 18:30; Stop 06/02/17 at 18:31; Status DC Lactulose (Lactulose Liq) 30 ml DAILY PRN PO SEVERE CONSITIPATION; Start at 19:15 Lorazepam (Ativan Inj) 0.5 mg Q3H PRN IV PUSH AGITATION/ANXIETY Last administered on 06/04/17at 06:36; Start 06/02/17 at 19:15 Lorazepam (Ativan) 1 mg ONCE ONCE PO Last administered on 06/02/17at 18:40; Start 06/02/17 at 18:30; Stop 06/02/17 at 18:31; Status DC Magnesium Hydroxide (Milk Of Magnesia Liq) 30 ml Q12H PRN PO Mild constipation ; Start 06/02/17 at 19:15 Metoprolol Tartrate (Lopressor) 25 mg Q12HR PO Last administered on 06/04/17at 08:16; Start 06/02/17 at 21:00 Nifedipine (Procardia Xl) 30 mg DAILY PO Last administered on 06/04/17at 08:16; Start 06/03/17 at 09:00 Ondansetron HCl (Zofran Inj) 4 mg Q6H PRN IVP NAUSEA OR VOMITING; Start at 19:15 Potassium Chloride (KCl) 30 meq ONCE ONCE PO Last administered on 06/03/17at 12 :16; Start 06/03/17 at 11:30; Stop 06/03/17 at 11:31; Status DC Pravastatin Sodium (Pravachol) 20 mg DAILY PO Last administered on 06/04/17at 08 :16; Start 06/03/17 at 09:00 Senna/Docusate Sodium (Indu-Colace) 1 tab BID PO Last administered on 08:15; Start 06/02/17 at 21:00 Sennosides (Senokot) 17.2 mg Q12H PRN PO Moderate constipation; Start 06/02/17 at 19:15 Sodium Chloride (NS Flush) 2 ml BID IV FLUSH Last administered on 06/04/17at 08: 17; Start 06/02/17 at 21:00 Tamsulosin HCl (Flomax) 0.4 mg DAILY PO Last administered on 06/04/17 08:15; Start 06/03/17 at 09:00 Temazepam (Restoril) 7.5 mg HS PRN PO SLEEP Last administered on 06/03/17at 21: 08; Start 06/02/17 at 22:15 A/P Problem List: (1) Encephalopathy ICD Code: G93.40 - Encephalopathy, unspecified Status: Acute (2) HTN (hypertension) ICD Code: I10 - Essential (primary) hypertension Status: Chronic (3) Renal insufficiency ICD Code: N28.9 - Disorder of kidney and ureter, unspecified (4) Urinary retention ICD Code: R33.9 - Retention of urine Status: Acute Assessment and Plan 1. Encephalopathy: Possibly duet to CVA / and progressive Dementia. MRI brain with subacute to chronic lacunar infarct; will add aspirin, check carotid doppler, echo and lipid profile. 2. HTN: overall better controlled. continue Nifedipine/Metoprolol, monitor BP. 3. Urinary Retention: likely secondary to BPH/Prostate CA, continue Flomax, Straight Cath prn. 4. chronic renal insufficiency; will monitor. 5.hypokalemia; replaced. 6. DVT Prophylaxis: SCD/Teds Discharge Planning w/u in progress. possible dc home tomorrow if stable- pending the work-up. d/w the son; case management consulted for [facility]. Problem Qualifiers (1) HTN (hypertension): Qualified Codes: I10 - Essential (primary) hypertension Tera Bruce MD Jun 04, 2017 12:01
[2017-06-04 13:09] LABS: CHOLESTEROL/ HDL RATIO 3.14 RATIO; HDL CHOLESTEROL 40.4 MG/DL (40.0-60.0)
--- NOTE | 2017-06-04 15:11 | RADRPT ---
EXAM DATE/TIME: 06/04/2017 14:05 [facility] COMPARISON: No previous studies available for comparison. INDICATIONS : Cerebrovascular accident. MEDICAL HISTORY : Hypertension. Hypercholesterolemia. Carcinoma, prostate. Anxiety. GERD. Arthritis. SURGICAL HISTORY : None. ENCOUNTER: Initial ACUITY: 1 day PAIN SCORE: 0/10 LOCATION: Bilateral neck PEAK SYSTOLIC VELOCITIES (cm/sec): ICA/CCA RATIO: Right: 0.7 Left: 0.8 ICA: Right: 75 Left: 91 CCA: Right: 111 Left: 120 ECA: Right: 131 Left: 112 VERTEBRAL: Right: 43 antegrade Left: 73 antegrade Elevated flow velocities and ICA/CCA ratios have been found to correlate with increased degrees of vessel stenosis, calculated as percentage of diameter relative to a normal segment of distal ICA/CCA FINDINGS: RIGHT CAROTID: No significant stenosis is visualized. The waveforms are within normal limits. LEFT CAROTID: No significant stenosis is visualized. The waveforms are within normal limits. VERTEBRAL ARTERIES: Antegrade flow is seen in both vertebral arteries. MISCELLANEOUS: None. CONCLUSION: 1. Minimal carotid plaque without flow limiting stenosis. 2. Antegrade vertebral artery flow bilaterally. Ruben Lee MD on June 04, 2017 at 15:07 Board Certified Radiologist. This report was verified electronically.
--- NOTE | 2017-06-04 15:12 | HHI.FF ---
Face to Face Verification Diagnosis: (1) Urinary retention (2) Microhematuria (3) Elevated PSA (4) HTN (hypertension) (5) Cognitive impairment (6) Hypertension (7) Encephalopathy Physical Therapy Order: Evaluate and Treat Occupational Therapy Order: Evaluate and Treat Home Health Nursing Order: Signs/symptoms of disease process Medication education-adverse effect Nursing assessment with vital signs I have seen patient Aj Brown on 06/04/17. My clinical findings support the need for the requested home health care services because: Ltd mobility - disease progression Deconditioned w/ increased weakness Limited ability to care for self Impaired cognition/judgement High risk of falls I certify that my clinical findings support that this patient is homebound because: Impaired cognitive ability/safety Unsteady gait/balance Anika Morrison Jun 04, 2017 15:12 Tera Bruce MD Jun 04, 2017 15:29
[2017-06-04] MEDS: ASPIRIN EC 81 MG TABEC PO SCH (15:14)
[2017-06-04] MEDS: ACETAMINOPHEN/HYDROcodone 325 MG/10 MG TAB PO PRN (19:27)
[2017-06-04 19:50] VITALS: BP 151/69; PULSE 68; RESP 16; TEMP 98.5; O2SAT 98
[2017-06-04] MEDS: TEMAZEPAM 7.5 MG CAP PO PRN (22:06)
[2017-06-04 23:42] VITALS: BP 184/78; PULSE 79; RESP 17; TEMP 98.5; O2SAT 98
[2017-06-05] VITALS (8 sets, daily range): BP systolic 137–186; BP diastolic 70–82; PULSE 73–99; RESP 17–20; TEMP 98.5–101.3; O2SAT 95–98
[2017-06-05] MEDS: ACETAMINOPHEN/HYDROcodone 325 MG/10 MG TAB PO PRN (03:57)
[2017-06-05] MEDS: DOCUSATE SODIUM 50 MG/SENNA 8.6 MG TAB PO SCH ×2 (09:24→21:00)
[2017-06-05] MEDS: ASPIRIN EC 81 MG TABEC PO SCH (09:24)
[2017-06-05] MEDS: PRAVASTATIN SOD 20 MG TAB PO SCH (09:25)
[2017-06-05] MEDS: METOPROLOL TARTRATE 25 MG TAB PO SCH ×2 (09:25→22:11)
[2017-06-05] MEDS: NIFEdipine 30 MG SUSTAINED RELEASE TAB PO SCH (09:25)
[2017-06-05] MEDS: SODIUM CHLORIDE 0.9% FLUSH 10 ML FLUSH IV FLUSH SCH ×2 (09:25→22:11)
[2017-06-05] MEDS: TAMSULOSIN HCL 0.4 MG CAP PO SCH (09:25)
--- NOTE | 2017-06-05 12:02 | HHI.PR ---
Subjective Remarks in no acute distress. denies pain. resting comfortably. daughter at the bedside. Objective Vitals Vital Signs Date Time Temp Pulse Resp B/P (MAP) Pulse Ox O2 Delivery O2 Flow Rate FiO2 06/05/17 11:32 99.6 75 18 156/72 (100) 95 06/05/17 07:20 100.0 73 20 149/70 (96) 97 06/05/17 04:14 98.5 86 17 166/76 (106) 96 06/05/17 00:41 137/82 (100) 06/04/17 23:42 98.5 79 17 184/78 (113) 98 06/04/17 19:50 98.5 68 16 151/69 (96) 98 I/O 06/04/17 06/04/17 06/04/17 06/05/17 06/05/17 06/05/17 07:00 15:00 23:00 07:00 15:00 23:00 Intake Total 200 ml Output Total 750 ml 225 ml 300 ml 450 ml Balance -750 ml -25 ml -300 ml -450 ml Intake Oral 200 ml Output Urine Total 750 ml 225 ml 300 ml 450 ml Result Diagram: 06/03/17 0607 06/04/17 0749 Imaging Last Impressions Carotid Artery Ultrasound 06/04/17 1200 Signed Impressions: Service Date/Time: Sunday, June 04, 2017 14:05 - CONCLUSION: 1. Minimal carotid plaque without flow limiting stenosis. 2. Antegrade vertebral artery flow bilaterally. 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 Carter Sawyer MD FACR Head CT 06/02/17 1646 Signed Impressions: Service Date/Time: Friday, June 02, 2017 17:54 - CONCLUSION: 1. No acute intracranial abnormality. 2. Chronic white matter changes. 3. Right sphenoid sinusitis. Jonathan De La Fuente MD Chest X-Ray 06/02/17 1646 Signed Impressions: Service Date/Time: Friday, June 02, 2017 16:57 - CONCLUSION: No acute disease. Jonathan Rosas MD Objective Remarks GENERAL: This is a well-nourished, well-developed patient, in no apparent distress. CARDIOVASCULAR: Regular rate and regular rhythm without murmurs, gallops, or rubs. RESPIRATORY: Clear to auscultation. Breath sounds equal bilaterally. No wheezes , rales, or rhonchi. GASTROINTESTINAL: Abdomen soft, non-tender, nondistended. Normal, active bowel sounds MUSCULOSKELETAL: Extremities without clubbing, cyanosis, or edema. NEURO: Alert & Oriented x4 to person, place, time, situation. Moves all ext x4 Procedures none Medications and IVs Inpatient Medications Acetaminophen (Tylenol) 650 mg Q6H PRN PO FEVER/PAIN SCALE 1 TO 2; Start at 19:15 Acetaminophen/ Hydrocodone Bitart ([place] 5-325 Mg) 1 tab Q4H PRN PO PAIN SCALE 3 TO 5; Start 06/02/17 at 19:15 Acetaminophen/ Hydrocodone Bitart ([place] 10-325 Mg) 1 tab Q4H PRN PO PAIN SCALE 6 TO 10 Last administered on 06/05/17at 03:57; Start 06/02/17 at 19:15 Aspirin (Ecotrin Ec) 81 mg DAILY PO Last administered on 06/05/17at 09:24; Start 06/04/17 at 14:00 Bisacodyl (Dulcolax Supp) 10 mg DAILY PRN RECTAL SEVERE CONSITIPATION; Start at 19:15 Clonidine (Catapres) 0.1 mg ONCE ONCE PO Last administered on 06/02/17at 21:39 ; Start 06/02/17 at 21:30; Stop 06/02/17 at 21:33; Status DC Hydralazine HCl (Apresoline Inj) 10 mg ONCE ONCE IV PUSH Last administered on 06/02/17at 18:41; Start 06/02/17 at 18:30; Stop 06/02/17 at 18:31; Status DC Lactulose (Lactulose Liq) 30 ml DAILY PRN PO SEVERE CONSITIPATION; Start at 19:15 Lorazepam (Ativan Inj) 0.5 mg Q3H PRN IV PUSH AGITATION/ANXIETY Last administered on 06/04/17at 15:41; Start 06/02/17 at 19:15 Lorazepam (Ativan) 1 mg ONCE ONCE PO Last administered on 06/02/17at 18:40; Start 06/02/17 at 18:30; Stop 06/02/17 at 18:31; Status DC Magnesium Hydroxide (Milk Of Magnesia Liq) 30 ml Q12H PRN PO Mild constipation ; Start 06/02/17 at 19:15 Metoprolol Tartrate (Lopressor) 25 mg Q12HR PO Last administered on 06/05/17 09:25; Start 06/02/17 at 21:00 Nifedipine (Procardia Xl) 30 mg DAILY PO Last administered on 06/05/17at 09:25; Start 06/03/17 at 09:00 Ondansetron HCl (Zofran Inj) 4 mg Q6H PRN IVP NAUSEA OR VOMITING; Start at 19:15 Potassium Chloride (KCl) 30 meq ONCE ONCE PO Last administered on 06/03/17 12 :16; Start 06/03/17 at 11:30; Stop 06/03/17 at 11:31; Status DC Pravastatin Sodium (Pravachol) 20 mg DAILY PO Last administered on 06/05/17at 09 :25; Start 06/03/17 at 09:00 Senna/Docusate Sodium (Indu-Colace) 1 tab BID PO Last administered on 09:24; Start 06/02/17 at 21:00 Sennosides (Senokot) 17.2 mg Q12H PRN PO Moderate constipation; Start 06/02/17 at 19:15 Sodium Chloride (NS Flush) 2 ml BID IV FLUSH Last administered on 06/05/17at 09: 25; Start 06/02/17 at 21:00 Tamsulosin HCl (Flomax) 0.4 mg DAILY PO Last administered on 06/05/17 09:25; Start 06/03/17 at 09:00 Temazepam (Restoril) 7.5 mg HS PRN PO SLEEP Last administered on 06/04/17at 22: 06; Start 06/02/17 at 22:15 A/P Problem List: (1) Encephalopathy ICD Code: G93.40 - Encephalopathy, unspecified Status: Acute (2) HTN (hypertension) ICD Code: I10 - Essential (primary) hypertension Status: Chronic (3) Renal insufficiency ICD Code: N28.9 - Disorder of kidney and ureter, unspecified (4) Urinary retention ICD Code: R33.9 - Retention of urine Status: Acute Assessment and Plan 1. Encephalopathy: Possibly duet to CVA / and progressive Dementia. MRI brain with subacute to chronic lacunar infarct; added aspirin- carotid doppler with no significant stenosis- echo pending. 2. HTN: overall better controlled. continue Nifedipine/Metoprolol, monitor BP. 3. Urinary Retention: likely secondary to BPH/Prostate CA, continue Flomax. will dc vazquez cath/ voiding trial. 4. chronic renal insufficiency; will monitor. 5.hypokalemia; replaced. 6.low grade fever; check UA- will monitor temps. 7. DVT Prophylaxis: SCD/Teds Discharge Planning d/w the daughter; case management consulted for dc planning to SNF. dc planning- soon -pending echo. Problem Qualifiers (1) HTN (hypertension): Qualified Codes: I10 - Essential (primary) hypertension Tera Bruce MD Jun 05, 2017 12:02
--- NOTE | 2017-06-05 17:36 | ECHRPT ---
Indication: Transient cerebral ischemic attack, unspecified CONCLUSIONS Mild concentric left ventricular hypertrophy. The left ventricular systolic function is normal with an estimated ejection fraction in the range of 60-65%. Normal LV size. BP: 149 / 70 HR: Rhythm: MEASUREMENTS (Male / Female) Normal Values Technical Quality:Fair 2D ECHO LV Diastolic Diameter PLAX 4.7 cm 4.2 - 5.9 / 3.9 - 5.3 cm LV Systolic Diameter PLAX 3.1 cm IVS Diastolic Thickness 1.5 cm 0.6 - 1.0 / 0.6 - 0.9 cm LVPW Diastolic Thickness 1.3 cm 0.6 - 1.0 / 0.6 - 0.9 cm LV Relative Wall Thickness 0.6 RV Internal Dim ED PLAX 2.5 cm M-MODE Aortic Root Diameter MM 3.3 cm LA Systolic Diameter MM 3.1 cm LA Ao Ratio MM 0.9 AV Cusp Separation MM 1.9 cm DOPPLER Mitral E Point Velocity 77.4 cm/s Mitral A Point Velocity 93.7 cm/s Mitral E to A Ratio 0.8 LV E' Lateral Velocity 10.8 cm/s Mitral E to LV E' Lateral Ratio 7.2 FINDINGS LEFT VENTRICLE Normal left ventricular size. Mild concentric left ventricular hypertrophy. The left ventricular systolic function is normal with an estimated ejection fraction in the range of 60-65%. RIGHT VENTRICLE Normal right ventricular size and systolic function. LEFT ATRIUM The left atrial size is normal. RIGHT ATRIUM The right atrial size is normal. ATRIAL SEPTUM Normal atrial septal thickness without atrial level shunting by limited color doppler interrogation. AORTA The aortic root and proximal ascending aorta are normal in size on limited imaging. MITRAL VALVE Structurally normal mitral valve. No mitral valve stenosis or regurgitation. AORTIC VALVE Trileaflet aortic valve. No aortic valve stenosis or regurgitation. TRICUSPID VALVE Structurally normal tricuspid valve. No tricuspid valve stenosis or regurgitation. PULMONARY VALVE Trivial pulmonary valve regurgitation. VESSELS The inferior vena cava is normal in size. PERICARDIUM No pericardial effusion. Roberta Martinez MD, FACC (Electronically Signed) Final Date:05 June 2017 17:35
--- NOTE | 2017-06-05 22:18 | RADRPT ---
EXAM DATE/TIME: 06/05/2017 22:04 [facility] COMPARISON: CHEST SINGLE AP, June 02, 2017, 16:57. INDICATIONS : Fever. MEDICAL HISTORY : Hypertension. Hypercholesterolemia. Carcinoma, prostate. SURGICAL HISTORY : None. ENCOUNTER: Subsequent ACUITY: 4 - 6 days PAIN SCORE: 0/10 LOCATION: Bilateral chest FINDINGS: A single view of the chest demonstrates diminished lung volumes without evidence of mass, infiltrate or effusion. The cardiomediastinal contours are unremarkable. Osseous structures are intact. CONCLUSION: No acute disease. Ramo Huerta MD on June 05, 2017 at 22:16 Board Certified Radiologist. This report was verified electronically.
[2017-06-05 23:10] LABS: AUTOMATED NEUTROPHIL # 16.8 TH/MM3 (1.8-7.7); BASOPHIL # 0.1 TH/MM3 (0-0.2); BASOPHIL % 0.3 % (0.0-2.0); HEMATOCRIT 37.1 % (39.0-51.0); HEMOGLOBIN 12.3 GM/DL (13.0-17.0); LYMPHOCYTE # 0.8 TH/MM3 (1.0-4.8); MEAN CELL VOLUME 82.4 FL (80.0-100.0); MEAN CORPUSCULAR HEMOGLOBIN 27.3 PG (27.0-34.0); MEAN CORPUSCULAR HGB CONC 33.2 % (32.0-36.0); MEAN PLATELET VOLUME 8.1 FL (7.0-11.0); MONO % 9.1 % (0.0-8.0); MONOCYTE # 1.8 TH/MM3 (0-0.9); NEUT % 86.6 % (16.0-70.0); PLATELET COUNT 200 TH/MM3 (150-450); RED CELL DISTRIBUTION WIDTH 14.7 % (11.6-17.2); WHITE BLOOD COUNT 19.4 TH/MM3 (4.0-11.0)
[2017-06-05] MEDS: TEMAZEPAM 7.5 MG CAP PO PRN (23:45)
[2017-06-05 23:50] LABS: BACTERIA, URINE MANY /hpf; BILIRUBIN, URINE NEG (NEG); BLOOD, URINE LARGE (NEG); GLUCOSE,URINE NEG (NEG); KETONE, URINE TRACE mg/dL (NEG); MUCUS URINE FEW /lpf (OCC); NITRITE,URINE POS (NEG); RENAL EPITHELIAL CELLS <1 /hpf; SQUAMOUS EPITHELIAL CELL URINE <1 /hpf (0-5); URIC ACID CRYSTALS, URINE OCC /hpf; URINE COLOR YELLOW (YELLW/STRAW); URINE LEUKOCYTE ESTERASE SMALL (NEG)
[2017-06-06] VITALS (8 sets, daily range): BP systolic 127–172; BP diastolic 63–80; PULSE 69–90; RESP 16–20; TEMP 97.7–100.3; O2SAT 97–100
[2017-06-06] MEDS: TAMSULOSIN HCL 0.4 MG CAP PO SCH (08:38)
[2017-06-06] MEDS: PRAVASTATIN SOD 20 MG TAB PO SCH (08:38)
[2017-06-06] MEDS: METOPROLOL TARTRATE 25 MG TAB PO SCH ×2 (08:38→20:39)
[2017-06-06] MEDS: ASPIRIN EC 325 MG TABEC PO SCH (08:38)
[2017-06-06] MEDS: NIFEdipine 30 MG SUSTAINED RELEASE TAB PO SCH (08:38)
[2017-06-06] MEDS: SODIUM CHLORIDE 0.9% FLUSH 10 ML FLUSH IV FLUSH SCH ×3 (08:39→20:41)
[2017-06-06] MEDS: DOCUSATE SODIUM 50 MG/SENNA 8.6 MG TAB PO SCH ×2 (08:40→20:34)
--- NOTE | 2017-06-06 09:40 | HHI.PR ---
Review/Management Diagnosis/Plan: (1) Chronic ischemic right MCA stroke ICD Codes: I69.30 - Unspecified sequelae of cerebral infarction Status: Chronic Plan: rt subcortical infarct carotids nml echo ef 60-65 % lipids in good range recs subacute stroke may be contributing to confusion aspirin bp control d/c planning home outpatient f/u (2) Encephalopathy ICD Codes: G93.40 - Encephalopathy, unspecified Status: Acute Plan: likely 2/2 severe HTN with probable underlying development of MCI/early dementia benzo's may be playing a role no fever, wbc in range tsh/b12 nml rpr negative recs limit benzo use home health care checks for medication compliance no driving d/c planning today will f/u in our office for further cognitive evaluation in 2 weeks (3) Cognitive impairment ICD Codes: R41.89 - Other symptoms and signs involving cognitive functions and awareness Status: Chronic Plan: suspect developing MCI/early alz no driving (4) Anxiety ICD Codes: F41.9 - Anxiety disorder, unspecified Status: Chronic (5) HTN (hypertension) ICD Codes: I10 - Essential (primary) hypertension Status: Chronic Subjective Subjective Comments No acute events reported No headache No chest pain No dyspnea Active Medications Current Medications Medications (Trade) Dose Ordered Sig/Frederic Route Start Time Stop Time Status Last Admin (Ativan Inj) 0.5 mg Q3H PRN IV PUSH 06/02/17 19:15 06/04/17 15:41 (NS Flush) 2 ml UNSCH PRN IV FLUSH 06/02/17 19:15 (NS Flush) 2 ml BID IV FLUSH 06/02/17 21:00 06/06/17 08:39 (Zofran Inj) 4 mg Q6H PRN IVP 06/02/17 19:15 (Tylenol) 650 mg Q6H PRN PO 06/02/17 19:15 06/05/17 22:11 ([place] 5-325 Mg) 1 tab Q4H PRN PO 06/02/17 19:15 ([place] 10-325 Mg) 1 tab Q4H PRN PO 06/02/17 19:15 06/05/17 03:57 (Indu-Colace) 1 tab BID PO 06/02/17 21:00 06/05/17 09:24 (Milk Of Magnesia Liq) 30 ml Q12H PRN PO 06/02/17 19:15 (Senokot) 17.2 mg Q12H PRN PO 06/02/17 19:15 (Dulcolax Supp) 10 mg DAILY PRN RECTAL 06/02/17 19:15 (Lactulose Liq) 30 ml DAILY PRN PO 06/02/17 19:15 (Procardia Xl) 30 mg DAILY PO 06/03/17 09:00 06/06/17 08:38 (Lopressor) 25 mg Q12HR PO 06/02/17 21:00 06/06/17 08:38 (Pravachol) 20 mg DAILY PO 06/03/17 09:00 06/06/17 08:38 (Restoril) 7.5 mg HS PRN PO 06/02/17 22:15 06/05/17 23:45 (Flomax) 0.4 mg DAILY PO 06/03/17 09:00 06/06/17 08:38 (Ecotrin Ec) 325 mg DAILY PO 06/06/17 09:00 06/06/17 08:38 Allergies Allergies Coded Allergies No Known Allergies (Unverified Allergy, Unknown, 06/02/17) Review of Systems All other ROS: ROS reviewed as documented in chart Exam I&O / VS Vital Signs Date Time Temp Pulse Resp B/P (MAP) Pulse Ox O2 Delivery O2 Flow Rate FiO2 06/06/17 08:41 99.3 78 20 127/63 (84) 98 06/06/17 06:03 98.0 69 20 151/73 (99) 99 Manual Cuff/Auscultation 06/06/17 02:59 78 144/74 (97) 98 06/06/17 02:56 100.3 77 20 163/80 (107) 98 06/05/17 23:23 100.1 142/76 (98) 06/05/17 22:12 101.3 99 18 98 06/05/17 21:42 101.3 93 20 186/82 (116) 97 Automatic Cuff 06/05/17 16:08 99.8 88 18 182/81 (114) 98 06/05/17 11:32 99.6 75 18 156/72 (100) 95 General: Alert and Oriented, No acute distress Eye: EOMI Respiratory: Non-labored respirations Cardiology: Normal rate Neurologic: Alert, Oriented, Normal sensory, Normal motor, No focal defects, CN II-XII intact, Normal DTR's Psychiatric: Cooperative, Appropriate mood & affect Exam Comments ox1-2, not to date, pleasant, calm, eomi, ou 3-2mm, face sym, neck supple, conte to gravity Objective Micro and Labs Laboratory Tests Test 06/05/17 23:00 06/05/17 23:30 White Blood Count 19.4 Red Blood Count 4.50 Hemoglobin 12.3 Hematocrit 37.1 Mean Corpuscular Volume 82.4 Mean Corpuscular Hemoglobin 27.3 Mean Corpuscular Hemoglobin Concent 33.2 Red Cell Distribution Width 14.7 Platelet Count 200 Mean Platelet Volume 8.1 Neutrophils (%) (Auto) 86.6 Lymphocytes (%) (Auto) 4.0 Monocytes (%) (Auto) 9.1 Eosinophils (%) (Auto) 0.0 Basophils (%) (Auto) 0.3 Neutrophils # (Auto) 16.8 Lymphocytes # (Auto) 0.8 Monocytes # (Auto) 1.8 Eosinophils # (Auto) 0.0 Basophils # (Auto) 0.1 CBC Comment DIFF FINAL Differential Comment Lactic Acid Level 0.8 Urine Color YELLOW Urine Turbidity HAZY Urine pH 6.0 Urine Specific [place] 1.019 Urine Protein 100 Urine Glucose (UA) NEG Urine Ketones TRACE Urine Occult Blood LARGE Urine Nitrite POS Urine Bilirubin NEG Urine Urobilinogen LESS THAN 2.0 Urine Leukocyte Esterase SMALL Urine RBC Urine WBC 61 Urine Squamous Epithelial Cells <1 Urine Renal Epithelial Cells <1 Urine Uric Acid Crystals OCC Urine Bacteria MANY Urine Mucus FEW Microscopic Urinalysis Comment CULTURE INDICATED Date/Time Source Procedure Growth Status 06/05/17 23:00 Blood Peripheral Aerobic Blood Culture Pending Received 06/05/17 23:00 Blood Peripheral Anaerobic Blood Culture Pending Received 06/05/17 23:30 Urine Clean Catch Urine Culture Pending Received Problem Qualifiers (1) HTN (hypertension): Qualified Codes: I10 - Essential (primary) hypertension Luiz Marquez MD Jun 06, 2017 09:40
--- NOTE | 2017-06-06 11:33 | HHI.PR ---
Subjective Remarks in no acute distress. had a fever spike last night. denies pain and looks comfortable. family at the bedside. Objective Vitals Vital Signs Date Time Temp Pulse Resp B/P (MAP) Pulse Ox O2 Delivery O2 Flow Rate FiO2 06/06/17 10:56 98.9 70 16 140/66 (90) 97 06/06/17 08:41 99.3 78 20 127/63 (84) 98 06/06/17 06:03 98.0 69 20 151/73 (99) 99 Manual Cuff/Auscultation 06/06/17 02:59 78 144/74 (97) 98 06/06/17 02:56 100.3 77 20 163/80 (107) 98 06/05/17 23:23 100.1 142/76 (98) 06/05/17 22:12 101.3 99 18 98 06/05/17 21:42 101.3 93 20 186/82 (116) 97 Automatic Cuff 06/05/17 16:08 99.8 88 18 182/81 (114) 98 06/05/17 11:32 99.6 75 18 156/72 (100) 95 I/O 06/05/17 06/05/17 06/05/17 06/06/17 06/06/17 06/06/17 07:00 15:00 23:00 07:00 15:00 23:00 Intake Total 250 ml Output Total 450 ml 700 ml Balance -450 ml -450 ml Intake Oral 250 ml Output Urine Total 450 ml 700 ml # Voids 1 Result Diagram: 06/05/17 2300 06/04/17 0749 Imaging Last Impressions Chest X-Ray 06/05/17 0000 Signed Impressions: Service Date/Time: Monday, June 05, 2017 22:04 - CONCLUSION: No acute disease. Ramo Huerta MD Carotid Artery Ultrasound 06/04/17 1200 Signed Impressions: Service Date/Time: Sunday, June 04, 2017 14:05 - CONCLUSION: 1. Minimal carotid plaque without flow limiting stenosis. 2. Antegrade vertebral artery flow bilaterally. 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 Carter Sawyer MD FACR Head CT 06/02/17 0136 Signed Impressions: Service Date/Time: Friday, June 02, 2017 17:54 - CONCLUSION: 1. No acute intracranial abnormality. 2. Chronic white matter changes. 3. Right sphenoid sinusitis. Jonathan De La Fuente MD Objective Remarks GENERAL: This is a well-nourished, well-developed patient, in no apparent distress. CARDIOVASCULAR: Regular rate and regular rhythm without murmurs, gallops, or rubs. RESPIRATORY: Clear to auscultation. Breath sounds equal bilaterally. No wheezes , rales, or rhonchi. GASTROINTESTINAL: Abdomen soft, non-tender, nondistended. Normal, active bowel sounds MUSCULOSKELETAL: Extremities without clubbing, cyanosis, or edema. NEURO: Alert & Oriented x4 to person, place, time, situation. Moves all ext x4 Procedures none Medications and IVs Inpatient Medications Acetaminophen (Tylenol) 650 mg Q6H PRN PO FEVER/PAIN SCALE 1 TO 2 Last administered on 06/05/17at 22:11; Start 06/02/17 at 19:15 Acetaminophen/ Hydrocodone Bitart ([place] 5-325 Mg) 1 tab Q4H PRN PO PAIN SCALE 3 TO 5; Start 06/02/17 at 19:15 Acetaminophen/ Hydrocodone Bitart ([place] 10-325 Mg) 1 tab Q4H PRN PO PAIN SCALE 6 TO 10 Last administered on 06/05/17at 03:57; Start 06/02/17 at 19:15 Aspirin (Ecotrin Ec) 325 mg DAILY PO Last administered on 06/06/17at 08:38; Start 06/06/17 at 09:00 Bisacodyl (Dulcolax Supp) 10 mg DAILY PRN RECTAL SEVERE CONSITIPATION; Start at 19:15 Clonidine (Catapres) 0.1 mg ONCE ONCE PO Last administered on 06/02/17at 21:39 ; Start 06/02/17 at 21:30; Stop 06/02/17 at 21:33; Status DC Hydralazine HCl (Apresoline Inj) 10 mg ONCE ONCE IV PUSH Last administered on 06/02/17at 18:41; Start 06/02/17 at 18:30; Stop 06/02/17 at 18:31; Status DC Lactulose (Lactulose Liq) 30 ml DAILY PRN PO SEVERE CONSITIPATION; Start at 19:15 Lorazepam (Ativan Inj) 0.5 mg Q3H PRN IV PUSH AGITATION/ANXIETY Last administered on 06/04/17at 15:41; Start 06/02/17 at 19:15 Lorazepam (Ativan) 1 mg ONCE ONCE PO Last administered on 06/02/17at 18:40; Start 06/02/17 at 18:30; Stop 06/02/17 at 18:31; Status DC Magnesium Hydroxide (Milk Of Magnesia Liq) 30 ml Q12H PRN PO Mild constipation ; Start 06/02/17 at 19:15 Metoprolol Tartrate (Lopressor) 25 mg Q12HR PO Last administered on 06/06/17at 08:38; Start 06/02/17 at 21:00 Nifedipine (Procardia Xl) 30 mg DAILY PO Last administered on 06/06/17at 08:38; Start 06/03/17 at 09:00 Ondansetron HCl (Zofran Inj) 4 mg Q6H PRN IVP NAUSEA OR VOMITING; Start at 19:15 Potassium Chloride (KCl) 30 meq ONCE ONCE PO Last administered on 06/03/17at 12 :16; Start 06/03/17 at 11:30; Stop 06/03/17 at 11:31; Status DC Pravastatin Sodium (Pravachol) 20 mg DAILY PO Last administered on 06/06/17at 08 :38; Start 06/03/17 at 09:00 Senna/Docusate Sodium (Indu-Colace) 1 tab BID PO Last administered on at 09:24; Start 06/02/17 at 21:00 Sennosides (Senokot) 17.2 mg Q12H PRN PO Moderate constipation; Start 06/02/17 at 19:15 Sodium Chloride (NS Flush) 2 ml BID IV FLUSH Last administered on 06/06/17at 08: 39; Start 06/02/17 at 21:00 Tamsulosin HCl (Flomax) 0.4 mg DAILY PO Last administered on 06/06/17at 08:38; Start 06/03/17 at 09:00 Temazepam (Restoril) 7.5 mg HS PRN PO SLEEP Last administered on 06/05/17at 23: 45; Start 06/02/17 at 22:15 A/P Problem List: (1) Encephalopathy ICD Code: G93.40 - Encephalopathy, unspecified Status: Acute (2) HTN (hypertension) ICD Code: I10 - Essential (primary) hypertension Status: Chronic (3) Renal insufficiency ICD Code: N28.9 - Disorder of kidney and ureter, unspecified (4) Urinary retention ICD Code: R33.9 - Retention of urine Status: Acute Assessment and Plan 1. Encephalopathy: Possibly duet to CVA / and progressive Dementia. MRI brain with subacute to chronic lacunar infarct; added aspirin- carotid doppler with no significant stenosis- echo with EF 60%. cleared by neurology for discharge. 2. HTN: overall better controlled. continue Nifedipine/Metoprolol, monitor BP. 3. Urinary Retention: likely secondary to BPH/Prostate CA, continue Flomax. 4-sepsis due to UTI- catheter related; vazquez cath was dc'ed- start on IV antibiotic and follow the cultures. 5. chronic renal insufficiency; will monitor. 6.hypokalemia; replaced. 7. DVT Prophylaxis: SCD/Teds/ subq Lovenox. Discharge Planning dc planning; home with C vs rehab. Problem Qualifiers (1) HTN (hypertension): Qualified Codes: I10 - Essential (primary) hypertension Tera Bruce MD Jun 06, 2017 11:33
[2017-06-06] MEDS: ENOXAPARIN SODIUM 40 MG/0.4 ML SYRINGE SQ SCH (12:22)
[2017-06-06] MEDS: cefTRIAXone INJ 1,000 MG in SODIUM CHLORIDE 0.9% INJ 100 ML IV SCH (12:23)
[2017-06-06] MEDS: TEMAZEPAM 7.5 MG CAP PO PRN (20:34)
[2017-06-07] VITALS (7 sets, daily range): BP systolic 133–186; BP diastolic 60–86; PULSE 67–80; RESP 16–20; TEMP 98.2–99.2; O2SAT 97–99
[2017-06-07 07:51] LABS: AUTOMATED NEUTROPHIL # 11.3 TH/MM3 (1.8-7.7); BASOPHIL % 0.3 % (0.0-2.0); EOSINOPHIL # 0.1 TH/MM3 (0-0.4); EOSINOPHIL % 0.4 % (0.0-4.0); HEMATOCRIT 37.9 % (39.0-51.0); HEMOGLOBIN 12.4 GM/DL (13.0-17.0); LYMPH % 6.3 % (9.0-44.0); LYMPHOCYTE # 0.8 TH/MM3 (1.0-4.8); MEAN CELL VOLUME 84.6 FL (80.0-100.0); MEAN CORPUSCULAR HEMOGLOBIN 27.7 PG (27.0-34.0); MEAN CORPUSCULAR HGB CONC 32.7 % (32.0-36.0); MEAN PLATELET VOLUME 9.1 FL (7.0-11.0); MONO % 9.5 % (0.0-8.0); MONOCYTE # 1.3 TH/MM3 (0-0.9); NEUT % 83.5 % (16.0-70.0); PLATELET COUNT 196 TH/MM3 (150-450); RED BLOOD COUNT 4.48 MIL/MM3 (4.50-5.90); WHITE BLOOD COUNT 13.5 TH/MM3 (4.0-11.0)
[2017-06-07] MEDS: ASPIRIN EC 325 MG TABEC PO SCH (08:53)
[2017-06-07] MEDS: PRAVASTATIN SOD 20 MG TAB PO SCH (08:53)
[2017-06-07] MEDS: DOCUSATE SODIUM 50 MG/SENNA 8.6 MG TAB PO SCH ×2 (08:54→20:46)
[2017-06-07] MEDS: NIFEdipine 30 MG SUSTAINED RELEASE TAB PO SCH (08:54)
[2017-06-07] MEDS: TAMSULOSIN HCL 0.4 MG CAP PO SCH (08:54)
[2017-06-07] MEDS: METOPROLOL TARTRATE 25 MG TAB PO SCH ×2 (08:54→20:46)
--- NOTE | 2017-06-07 10:20 | HHI.PR ---
Subjective Remarks in no acute distress. has mild epigastric pain. no fever. Objective Vitals Vital Signs Date Time Temp Pulse Resp B/P (MAP) Pulse Ox O2 Delivery O2 Flow Rate FiO2 06/07/17 07:17 99.2 72 16 146/75 (98) 99 06/07/17 04:41 98.5 73 17 137/68 (91) 97 06/07/17 00:27 98.2 70 16 133/60 (84) 98 06/06/17 22:02 98.5 70 16 167/75 (105) 99 06/06/17 20:40 97.7 90 16 172/79 (110) 98 06/06/17 15:36 98.9 75 16 141/68 (92) 100 06/06/17 10:56 98.9 70 16 140/66 (90) 97 I/O 06/06/17 06/06/17 06/06/17 06/07/17 06/07/17 06/07/17 07:00 15:00 23:00 07:00 15:00 23:00 # Voids 1 2 Result Diagram: 06/07/17 0605 06/04/17 0749 Imaging Last Impressions Chest X-Ray 06/05/17 0000 Signed Impressions: Service Date/Time: Monday, June 05, 2017 22:04 - CONCLUSION: No acute disease. Ramo Huerta MD Carotid Artery Ultrasound 06/04/17 1200 Signed Impressions: Service Date/Time: Sunday, June 04, 2017 14:05 - CONCLUSION: 1. Minimal carotid plaque without flow limiting stenosis. 2. Antegrade vertebral artery flow bilaterally. 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 Carter Sawyer MD FACR Head CT 06/02/17 1646 Signed Impressions: Service Date/Time: Friday, June 02, 2017 17:54 - CONCLUSION: 1. No acute intracranial abnormality. 2. Chronic white matter changes. 3. Right sphenoid sinusitis. Jonathan De La Fuente MD Objective Remarks GENERAL: This is a well-nourished, well-developed patient, in no apparent distress. CARDIOVASCULAR: Regular rate and regular rhythm without murmurs, gallops, or rubs. RESPIRATORY: Clear to auscultation. Breath sounds equal bilaterally. No wheezes , rales, or rhonchi. GASTROINTESTINAL: Abdomen soft, non-tender, nondistended. Normal, active bowel sounds MUSCULOSKELETAL: Extremities without clubbing, cyanosis, or edema. NEURO: awake and alert. Moves all ext x4 Procedures none Medications and IVs Inpatient Medications Acetaminophen (Tylenol) 650 mg Q6H PRN PO FEVER/PAIN SCALE 1 TO 2 Last administered on 06/05/17 22:11; Start 06/02/17 at 19:15 Acetaminophen/ Hydrocodone Bitart ([place] 5-325 Mg) 1 tab Q4H PRN PO PAIN SCALE 3 TO 5; Start 06/02/17 at 19:15 Acetaminophen/ Hydrocodone Bitart ([place] 10-325 Mg) 1 tab Q4H PRN PO PAIN SCALE 6 TO 10 Last administered on 06/05/17at 03:57; Start 06/02/17 at 19:15 Aspirin (Ecotrin Ec) 325 mg DAILY PO Last administered on 06/07/17 08:53; Start 06/06/17 at 09:00 Bisacodyl (Dulcolax Supp) 10 mg DAILY PRN RECTAL SEVERE CONSITIPATION; Start at 19:15 Ceftriaxone Sodium 1000 mg/ Sodium Chloride 100 ml @ 200 mls/hr Q24H IV Last administered on 06/06/17 12:23; Start 06/06/17 at 12:00 Clonidine (Catapres) 0.1 mg ONCE ONCE PO Last administered on 06/02/17 21:39 ; Start 06/02/17 at 21:30; Stop 06/02/17 at 21:33; Status DC Enoxaparin Sodium (Lovenox Inj) 40 mg Q24H SQ Last administered on 06/06/17 12 :22; Start 06/06/17 at 12:00 Hydralazine HCl (Apresoline Inj) 10 mg ONCE ONCE IV PUSH Last administered on 06/02/17at 18:41; Start 06/02/17 at 18:30; Stop 06/02/17 at 18:31; Status DC Lactulose (Lactulose Liq) 30 ml DAILY PRN PO SEVERE CONSITIPATION; Start at 19:15 Lorazepam (Ativan Inj) 0.5 mg Q3H PRN IV PUSH AGITATION/ANXIETY Last administered on 06/04/17 15:41; Start 06/02/17 at 19:15 Lorazepam (Ativan) 1 mg ONCE ONCE PO Last administered on 06/02/17 18:40; Start 06/02/17 at 18:30; Stop 06/02/17 at 18:31; Status DC Magnesium Hydroxide (Milk Of Magnesia Liq) 30 ml Q12H PRN PO Mild constipation ; Start 06/02/17 at 19:15 Metoprolol Tartrate (Lopressor) 25 mg Q12HR PO Last administered on 06/07/17 08:54; Start 06/02/17 at 21:00 Nifedipine (Procardia Xl) 30 mg DAILY PO Last administered on 06/07/17 08:54; Start 06/03/17 at 09:00 Ondansetron HCl (Zofran Inj) 4 mg Q6H PRN IVP NAUSEA OR VOMITING; Start at 19:15 Potassium Chloride (KCl) 30 meq ONCE ONCE PO Last administered on 06/03/17 12 :16; Start 06/03/17 at 11:30; Stop 06/03/17 at 11:31; Status DC Pravastatin Sodium (Pravachol) 20 mg DAILY PO Last administered on 06/07/17 08 :53; Start 06/03/17 at 09:00 Senna/Docusate Sodium (Indu-Colace) 1 tab BID PO Last administered on 08:54; Start 06/02/17 at 21:00 Sennosides (Senokot) 17.2 mg Q12H PRN PO Moderate constipation; Start 06/02/17 at 19:15 Sodium Chloride (NS Flush) 2 ml BID IV FLUSH Last administered on 06/06/17 20: 41; Start 06/02/17 at 21:00 Tamsulosin HCl (Flomax) 0.4 mg DAILY PO Last administered on 06/07/17 08:54; Start 06/03/17 at 09:00 Temazepam (Restoril) 7.5 mg HS PRN PO SLEEP Last administered on 06/06/17 20: 34; Start 06/02/17 at 22:15 A/P Problem List: (1) Encephalopathy ICD Code: G93.40 - Encephalopathy, unspecified Status: Acute (2) HTN (hypertension) ICD Code: I10 - Essential (primary) hypertension Status: Chronic (3) Renal insufficiency ICD Code: N28.9 - Disorder of kidney and ureter, unspecified (4) Urinary retention ICD Code: R33.9 - Retention of urine Status: Acute Assessment and Plan 1. Encephalopathy: Possibly duet to CVA / and progressive Dementia. MRI brain with subacute to chronic lacunar infarct; added aspirin- carotid doppler with no significant stenosis- echo with EF 60%. cleared by neurology for discharge. 2. HTN: overall better controlled. continue Nifedipine/Metoprolol, monitor BP. 3. Urinary Retention: likely secondary to BPH/Prostate CA, continue Flomax. 4-sepsis due to UTI- catheter related; vazquez cath was dc'ed- started on IV antibiotic. blood cultures negative so far- UC with gram negative tristian. 5. chronic renal insufficiency; will monitor. 6.hypokalemia; replaced. 7. DVT Prophylaxis: SCD/Teds/ subq Lovenox. Discharge Planning dc planning to SNF. Problem Qualifiers (1) HTN (hypertension): Qualified Codes: I10 - Essential (primary) hypertension Tera Bruce MD Jun 07, 2017 10:20
[2017-06-07] MEDS: ENOXAPARIN SODIUM 40 MG/0.4 ML SYRINGE SQ SCH (12:05)
[2017-06-07] MEDS: cefTRIAXone INJ 1,000 MG in SODIUM CHLORIDE 0.9% INJ 100 ML IV SCH (12:05)
[2017-06-07] MEDS ORDERED: CEFU1TAB18 PO (17:16)
[2017-06-07] MEDS ORDERED: ASPI325T33 PO (17:16)
[2017-06-07] MEDS: SODIUM CHLORIDE 0.9% FLUSH 10 ML FLUSH IV FLUSH SCH (20:47)
[2017-06-07] MEDS: TEMAZEPAM 7.5 MG CAP PO PRN (21:20)
[2017-06-08 03:02] VITALS: BP 144/67; PULSE 67; RESP 16; TEMP 99.3; O2SAT 96
[2017-06-08 06:54] LABS: AUTOMATED NEUTROPHIL # 5.3 TH/MM3 (1.8-7.7); BASOPHIL % 0.6 % (0.0-2.0); EOSINOPHIL # 0.1 TH/MM3 (0-0.4); EOSINOPHIL % 0.7 % (0.0-4.0); HEMATOCRIT 37.8 % (39.0-51.0); HEMOGLOBIN 12.5 GM/DL (13.0-17.0); LYMPH % 10.2 % (9.0-44.0); LYMPHOCYTE # 0.7 TH/MM3 (1.0-4.8); MEAN CELL VOLUME 84.5 FL (80.0-100.0); MEAN CORPUSCULAR HEMOGLOBIN 27.9 PG (27.0-34.0); MEAN PLATELET VOLUME 8.7 FL (7.0-11.0); MONO % 14.1 % (0.0-8.0); NEUT % 74.4 % (16.0-70.0); PLATELET COUNT 204 TH/MM3 (150-450); RED BLOOD COUNT 4.47 MIL/MM3 (4.50-5.90); RED CELL DISTRIBUTION WIDTH 15.1 % (11.6-17.2); WHITE BLOOD COUNT 7.2 TH/MM3 (4.0-11.0)
[2017-06-08 07:37] VITALS: BP 157/74; PULSE 67; RESP 16; TEMP 97.8; O2SAT 100
[2017-06-08] MEDS: NIFEdipine 30 MG SUSTAINED RELEASE TAB PO SCH (09:13)
[2017-06-08] MEDS: PRAVASTATIN SOD 20 MG TAB PO SCH (09:13)
[2017-06-08] MEDS: ASPIRIN EC 325 MG TABEC PO SCH (09:13)
[2017-06-08] MEDS: TAMSULOSIN HCL 0.4 MG CAP PO SCH (09:13)
[2017-06-08] MEDS: METOPROLOL TARTRATE 25 MG TAB PO SCH (09:14)
[2017-06-08] MEDS: DOCUSATE SODIUM 50 MG/SENNA 8.6 MG TAB PO SCH (09:14)
[2017-06-08] MEDS: SODIUM CHLORIDE 0.9% FLUSH 10 ML FLUSH IV FLUSH SCH (09:14)
--- NOTE | 2017-06-08 10:52 | HHI.PR ---
Subjective Remarks in no acute distress. afebrile. denies pain. Objective Vitals Vital Signs Date Time Temp Pulse Resp B/P (MAP) Pulse Ox O2 Delivery O2 Flow Rate FiO2 06/08/17 07:37 97.8 67 16 157/74 (101) 100 06/08/17 03:02 99.3 67 16 144/67 (92) 96 06/07/17 23:58 98.9 67 16 155/72 (99) 98 06/07/17 21:02 98.7 80 16 186/86 (119) 98 06/07/17 14:50 98.9 78 20 158/77 (104) 98 06/07/17 10:58 98.5 73 16 135/68 (90) 98 I/O 06/07/17 06/07/17 06/07/17 06/08/17 06/08/17 06/08/17 07:00 15:00 23:00 07:00 15:00 23:00 # Voids 2 Result Diagram: 06/08/17 0607 06/04/17 0749 Imaging Last Impressions Chest X-Ray 06/05/17 0000 Signed Impressions: Service Date/Time: Monday, June 05, 2017 22:04 - CONCLUSION: No acute disease. Ramo Huerta MD Carotid Artery Ultrasound 06/04/17 1200 Signed Impressions: Service Date/Time: Sunday, June 04, 2017 14:05 - CONCLUSION: 1. Minimal carotid plaque without flow limiting stenosis. 2. Antegrade vertebral artery flow bilaterally. 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 Carter Sawyer MD FACR Head CT 06/02/17 1646 Signed Impressions: Service Date/Time: Friday, June 02, 2017 17:54 - CONCLUSION: 1. No acute intracranial abnormality. 2. Chronic white matter changes. 3. Right sphenoid sinusitis. Jonathan De La Fuente MD Objective Remarks GENERAL: This is a well-nourished, well-developed patient, in no apparent distress. CARDIOVASCULAR: Regular rate and regular rhythm without murmurs, gallops, or rubs. RESPIRATORY: Clear to auscultation. Breath sounds equal bilaterally. No wheezes , rales, or rhonchi. GASTROINTESTINAL: Abdomen soft, non-tender, nondistended. Normal, active bowel sounds MUSCULOSKELETAL: Extremities without clubbing, cyanosis, or edema. NEURO: awake and alert. Moves all ext x4 Procedures none Medications and IVs Inpatient Medications Acetaminophen (Tylenol) 650 mg Q6H PRN PO FEVER/PAIN SCALE 1 TO 2 Last administered on 06/05/17at 22:11; Start 06/02/17 at 19:15 Acetaminophen/ Hydrocodone Bitart ([place] 5-325 Mg) 1 tab Q4H PRN PO PAIN SCALE 3 TO 5; Start 06/02/17 at 19:15 Acetaminophen/ Hydrocodone Bitart ([place] 10-325 Mg) 1 tab Q4H PRN PO PAIN SCALE 6 TO 10 Last administered on 06/05/17 03:57; Start 06/02/17 at 19:15 Aspirin (Ecotrin Ec) 325 mg DAILY PO Last administered on 06/08/17at 09:13; Start 06/06/17 at 09:00 Bisacodyl (Dulcolax Supp) 10 mg DAILY PRN RECTAL SEVERE CONSITIPATION; Start at 19:15 Ceftriaxone Sodium 1000 mg/ Sodium Chloride 100 ml @ 200 mls/hr Q24H IV Last administered on 06/07/17at 12:05; Start 06/06/17 at 12:00 Clonidine (Catapres) 0.1 mg ONCE ONCE PO Last administered on 06/02/17at 21:39 ; Start 06/02/17 at 21:30; Stop 06/02/17 at 21:33; Status DC Enoxaparin Sodium (Lovenox Inj) 40 mg Q24H SQ Last administered on 06/07/17at 12 :05; Start 06/06/17 at 12:00 Hydralazine HCl (Apresoline Inj) 10 mg ONCE ONCE IV PUSH Last administered on 06/02/17at 18:41; Start 06/02/17 at 18:30; Stop 06/02/17 at 18:31; Status DC Lactulose (Lactulose Liq) 30 ml DAILY PRN PO SEVERE CONSITIPATION; Start at 19:15 Lorazepam (Ativan Inj) 0.5 mg Q3H PRN IV PUSH AGITATION/ANXIETY Last administered on 06/04/17 15:41; Start 06/02/17 at 19:15 Lorazepam (Ativan) 1 mg ONCE ONCE PO Last administered on 06/02/17 18:40; Start 06/02/17 at 18:30; Stop 06/02/17 at 18:31; Status DC Magnesium Hydroxide (Milk Of Magnesia Liq) 30 ml Q12H PRN PO Mild constipation ; Start 06/02/17 at 19:15 Metoprolol Tartrate (Lopressor) 25 mg Q12HR PO Last administered on 06/08/17 09:14; Start 06/02/17 at 21:00 Nifedipine (Procardia Xl) 30 mg DAILY PO Last administered on 06/08/17 09:13; Start 06/03/17 at 09:00 Ondansetron HCl (Zofran Inj) 4 mg Q6H PRN IVP NAUSEA OR VOMITING; Start at 19:15 Potassium Chloride (KCl) 30 meq ONCE ONCE PO Last administered on 06/03/17 12 :16; Start 06/03/17 at 11:30; Stop 06/03/17 at 11:31; Status DC Pravastatin Sodium (Pravachol) 20 mg DAILY PO Last administered on 06/08/17 09 :13; Start 06/03/17 at 09:00 Senna/Docusate Sodium (Indu-Colace) 1 tab BID PO Last administered on 09:14; Start 06/02/17 at 21:00 Sennosides (Senokot) 17.2 mg Q12H PRN PO Moderate constipation; Start 06/02/17 at 19:15 Sodium Chloride (NS Flush) 2 ml BID IV FLUSH Last administered on 06/08/17 09: 14; Start 06/02/17 at 21:00 Tamsulosin HCl (Flomax) 0.4 mg DAILY PO Last administered on 06/08/17 09:13; Start 06/03/17 at 09:00 Temazepam (Restoril) 7.5 mg HS PRN PO SLEEP Last administered on 06/07/17 21: 20; Start 06/02/17 at 22:15 A/P Problem List: (1) Encephalopathy ICD Code: G93.40 - Encephalopathy, unspecified Status: Acute (2) HTN (hypertension) ICD Code: I10 - Essential (primary) hypertension Status: Chronic (3) Renal insufficiency ICD Code: N28.9 - Disorder of kidney and ureter, unspecified (4) Urinary retention ICD Code: R33.9 - Retention of urine Status: Acute Assessment and Plan 1. Encephalopathy: Possibly duet to CVA / and progressive Dementia. MRI brain with subacute to chronic lacunar infarct; added aspirin- carotid doppler with no significant stenosis- echo with EF 60%. cleared by neurology for discharge. 2. HTN: continue Nifedipine/Metoprolol, monitor BP. 3. Urinary Retention: likely secondary to BPH/Prostate CA, continue Flomax. 4-sepsis due to UTI- catheter related; vazquez cath was dc'ed- started on antibiotic. blood cultures negative so far- UC with gram negative tristian. 5. chronic renal insufficiency; will monitor. 6.hypokalemia; replaced. 7. DVT Prophylaxis: SCD/Teds/ subq Lovenox. Discharge Planning dc home with C. see med list. f/u; pcp and neurology. Problem Qualifiers (1) HTN (hypertension): Qualified Codes: I10 - Essential (primary) hypertension Tera Bruce MD Jun 08, 2017 10:52
[2017-06-08 12:53] VITALS: BP 175/92; PULSE 64; RESP 16; TEMP 98.2; O2SAT 98
[2017-06-08] MEDS: ENOXAPARIN SODIUM 40 MG/0.4 ML SYRINGE SQ SCH (12:57)
[2017-06-08] MEDS: cefTRIAXone INJ 1,000 MG in SODIUM CHLORIDE 0.9% INJ 100 ML IV SCH (12:57)
== END 2017-06-08 15:17 | disposition home health service (06) | DRG 698 ==
LOC: NEPE 16:13 → NEDA 19:33 → NEPHCDU 20:33 → OBSVTOIN 06-06 13:02
PROVIDERS: ADMIT Internal Medicine; ATTEND Internal Medicine
DX: T83.511A Infection and inflammatory reaction due to indwelling urethral catheter, initial encounter (principal); A41.51 Sepsis due to Escherichia coli [E. coli]; G92 Toxic encephalopathy; I67.4 Hypertensive encephalopathy; N18.4 Chronic kidney disease, stage 4 (severe); I12.9 Hypertensive chronic kidney disease with stage 1 through stage 4 chronic kidney disease, or unspecified chronic kidney disease; N39.0 Urinary tract infection, site not specified; F03.90 Unspecified dementia, unspecified severity, without behavioral disturbance, psychotic disturbance, mood disturbance, and anxiety; C61 Malignant neoplasm of prostate; E78.5 Hyperlipidemia, unspecified; K21.9 Gastro-esophageal reflux disease without esophagitis; N40.1 Benign prostatic hyperplasia with lower urinary tract symptoms; E87.6 Hypokalemia; R33.8 Other retention of urine; T42.4X5A Adverse effect of benzodiazepines, initial encounter; I69.398 Other sequelae of cerebral infarction; M19.90 Unspecified osteoarthritis, unspecified site; F41.9 Anxiety disorder, unspecified
CPT/HCPCS: 70450; 70551; 71045; 76937; 80048; 80053; 80061; 81001; 82550; 82552; 82607; 83605; 83735; 84443; 84484; 85025; 85610; 85730; 86592; 87040; 87077; 87086; 87186; 93005; 93306; 93880; 95819; 96374; 96375; 96376; G0378; G8987-GP; G8988-GP; J0360; J0696; J1650; J2060; J7030